=== PATIENT | female | born 1930 | race Caucasian/White ===

== ENCOUNTER 2017-02-14 14:35 | Inpatient (IN) | payer OTHER ==
[~2017-02-14] VITALS: Ht 177.8 cm; Wt 63.8 kg
[~2017-02-14 14:35] MED LIST: AMLO10TA2 PO; APIX5TAB PO; ASCO500T2 PO; CETI10TA22 PO; CIPR250T30 PO; DOCU-109 PO; Diltiazem Hcl PO; FERR325T72 PO; FLEC50TA PO; FLECAINIDE 50 MG; HYDR-2762 PO; LEVO250T25 PO; Lisinopril PO; METO25TA2 PO; METO25TA4 PO; Metoprolol Tartrate PO; ZINC220C5 PO
--- NOTE | 2017-02-14 15:12 | PHYS DOC ---
Past Medical History Past Medical History: A-Fib, GERD, Hypertension, Other Additional Past Medical Histor: seasonal allergies Past Surgical History: Appendectomy, Hysterectomy Alcohol Use: None Drug Use: None Adult General Chief Complaint Chief Complaint: MECHANICAL FALL HPI HPI Patient is a 86 year old female who presents with of ER with dizziness. The middle night she tried to go to the restroom and when she got up she got very lightheaded and dizzy and went to the floor. Her life alert when off and her daughters came over and got her back and up into her bed and she did not want to go to the hospital. She's been complaining ever since the incident which happened approximately 12 hours ago that she's been lightheaded whenever she sits up or tries to stand up. She states she's noticed in her heart beating faster than normal. She states she is on flecainide she takes it twice a day and took it this morning. She does get weaned off of metoprolol by Dr. Galan because her heart rate usually is in the 60s and she is not taking a very often. She has a bruise the left side of her scalp but denies any headache , neck pain, abdominal pain, hip pain or shortness of breath. She states she feels very weak and dizzy when she tries to change positions. She denies any vertigo, or chest pain. Review of Systems Review of Systems Constitutional: Denies fever or chills [] Eyes: Denies change in visual acuity, redness, or eye pain [] HENT: Denies nasal congestion or sore throat [] Respiratory: Denies cough or shortness of breath [] Cardiovascular: No additional information not addressed in HPI [] GI: Denies abdominal pain, nausea, vomiting, bloody stools or diarrhea [] : Denies dysuria or hematuria [] Musculoskeletal: Denies back pain or joint pain [] Integument: Denies rash or skin lesions [] Neurologic: Denies headache, focal weakness or sensory changes [] Endocrine: Denies polyuria or polydipsia [] Current Medications Current Medications Current Medications Medications (Trade) Dose Ordered Sig/Alley Start Time Stop Time Status Last Admin Dose Admin Diltiazem HCl (Cardizem) 10 mg 1X ONCE 02/14/17 15:30 02/14/17 15:32 DC 02/14/17 16:20 10 MG Diltiazem HCl 125 mg/Dextrose 125 ml @ 10 mls/hr 1X ONCE 02/14/17 15:30 02/15/17 03:59 02/14/17 16:20 10 MLS/HR Allergies Allergies Allergies Coded Allergies Type Severity Reaction Last Updated Verified Penicillins Allergy Intermediate RASH/SWELLING 08/08/15 Yes zolpidem Allergy Intermediate 11/04/15 No Physical Exam Physical Exam Constitutional: Well developed, well nourished, no acute distress, non-toxic appearance. [] HENT: Normocephalic, bilateral external ears normal, oropharynx moist, no oral exudates, nose normal. [] Eyes: PERRLA, EOMI, conjunctiva normal, no discharge. [] Neck: Normal range of motion, no tenderness, supple, no stridor. [] Cardiovascular:Heart rate tachycardiac with irregular rhythm Lungs & Thorax: Bilateral breath sounds clear to auscultation [] Abdomen: Bowel sounds normal, soft, no tenderness, no masses, no pulsatile masses. [] Skin: Warm, dry, no erythema, no rash. [] Back: No tenderness, no CVA tenderness. [] Extremities: No tenderness, no cyanosis, no clubbing, ROM intact, no edema. [] Neurologic: Alert and oriented X 3, normal motor function, normal sensory function, no focal deficits noted. 2 x 4 cm skin tear of the left proximal humerus, ecchymosis 3 x 3 cm over the left parietal scalp without any obvious deformities Psychologic: Affect normal, judgement normal, mood normal. [] Current Patient Data Vital Signs Vital Signs Date Time Temp Pulse Resp B/P (MAP) Pulse Ox O2 Delivery O2 Flow Rate FiO2 02/14/17 16:30 94 96 02/14/17 16:20 115/80 02/14/17 14:50 97.7 22 Room Air 97.7 Lab Values Laboratory Tests Test 02/14/17 16:25 White Blood Count 16.0 x10^3/uL (4.0-11.0) H Red Blood Count 5.66 x10^6/uL (3.50-5.40) H Hemoglobin 15.4 g/dL (12.0-15.5) Hematocrit 46.3 % (36.0-47.0) Mean Corpuscular Volume 82 fL (79-100) Mean Corpuscular Hemoglobin 27 pg (25-35) Mean Corpuscular Hemoglobin Concent 33 g/dL (31-37) Red Cell Distribution Width 17.2 % (11.5-14.5) H Platelet Count 301 x10^3/uL (140-400) Neutrophils (%) (Auto) 78 % (31-73) H Lymphocytes (%) (Auto) 12 % (24-48) L Monocytes (%) (Auto) 10 % (0-9) H Eosinophils (%) (Auto) 0 % (0-3) Basophils (%) (Auto) 0 % (0-3) Neutrophils # (Auto) 12.4 x10^3uL (1.8-7.7) H Lymphocytes # (Auto) 1.9 x10^3/uL (1.0-4.8) Monocytes # (Auto) 1.6 x10^3/uL (0.0-1.1) H Eosinophils # (Auto) 0.0 x10^3/uL (0.0-0.7) Basophils # (Auto) 0.1 x10^3/uL (0.0-0.2) Prothrombin Time 13.5 SEC (11.7-14.0) Prothrombin Time INR 1.1 (0.8-1.1) Urine Collection Type U cath Urine Color Yellow Urine Clarity Cloudy Urine pH 7.5 Urine Specific [place] 1.015 Urine Protein Negative mg/dL (NEG-TRACE) Urine Glucose (UA) Negative mg/dL (NEG) Urine Ketones (Stick) Negative mg/dL (NEG) Urine Blood Small (NEG) Urine Nitrite Negative (NEG) Urine Bilirubin Negative (NEG) Urine Urobilinogen Dipstick 0.2 mg/dL (0.2 mg/dL) Urine Leukocyte Esterase Large (NEG) Urine RBC Occ /HPF (0-2) Urine WBC >40 /HPF (0-4) Urine Bacteria Many /HPF (0-FEW) Laboratory Tests 02/14/17 16:25 EKG EKG [] Radiology/Procedures Radiology/Procedures [facility] [address] [place], [place] [id number] IMAGING REPORT Signed PATIENT: DIGNA STARR ACCOUNT: [id number] : 1930 LOCATION: ER AGE: 86 SEX: F EXAM STATUS: PRE ER ORD. PHYSICIAN: LEO EASON MD REASON: afib with rvr, dizziness PROCEDURE: PORTABLE CHEST 1V PORTABLE CHEST 1V Clinical Indication: afib with rvr, dizziness Comparison: Chest radiograph dated 08/06/2015 Findings: Low lung volume. No focal consolidation. Unchanged interstitial opacities. Stable pulmonary vasculature. No pleural effusion or pneumothorax. Stable cardiomegaly. Stable atherosclerotic and tortuous thoracic aorta. No acute osseous abnormality. IMPRESSION: 1. No focal consolidation. 2. Stable cardiomegaly. DICTATED and SIGNED BY: MIGUELINA DEUTSCH MD DATE: 02/14/17 1473 CC: LEO EASON MD; UNKNOWN PCP NAME ~ [facility] [address] [place] [address] IMAGING REPORT Signed PATIENT: DIGNA STARR ACCOUNT: [id number] : 1930 LOCATION: ER AGE: 86 SEX: F EXAM STATUS: PRE ER ORD. PHYSICIAN: LEO EASON MD REASON: fall with chi PROCEDURE: CT HEAD AND CERVICAL SPINE WO CTA head and neck Indication: Fall Technique: CT head and neck without IV contrast with multiplanar reformats. Comparison: Previous study from 08/06/2015 Findings: CT head: No pathologic extra-axial or intra-axial fluid collection. Mild to moderate diffuse brain atrophy with ex vacuo dilation of the ventricles. Confluent periventricular and deep white matter low-attenuation of the white matter noted. No acute intracranial bleed. No calvarial fractures. Mild mucoperiosteal thickening of the ethmoid air cells. The mastoid cells are clear. Bilateral cavernous carotid artery calcifications. Impression: 1. No acute intracranial process on this noncontrast CT. 2. Mild to moderate diffuse brain atrophy. 3. White matter changes secondary to sequelae of chronic medical vascular small vessel disease. CT neck: Cervical spine is in normal anatomic alignment. No compression deformities. Facet joints are in normal anatomic alignment. Predental interval is preserved with arthritic changes. There is intervertebral disc space narrowing noted at multiple levels with small anterior osteophytes suggesting degenerative disc disease. Severe right C2-C3 facet arthropathy. No acute fractures. Stable scarring and emphysematous changes seen in the lung apices, right more than left. Prevertebral soft tissues within normal limits. Impression: 1. No acute fractures of the cervical spine or malalignment. 2. Multilevel degenerative disc disease and facet arthropathy of the cervical spine. PQRS Compliance Statement: One or more of the following individualized dose reduction techniques were utilized for this examination: 1. Automated exposure control 2. Adjustment of the mA and/or kV according to patient size 3. Use of iterative reconstruction technique DICTATED and SIGNED BY: MINE FRANCO DO DATE: 02/14/17 5466 CC: LEO EASON MD; UNKNOWN PCP NAME ~ Impressions: A. fib with RVR Closed head injury Left arm skin tear UTI Hypertension Course & Med Decision Making Course & Med Decision Making Pertinent Labs and Imaging studies reviewed. (See chart for details) CT head and neck do not show an acute amount. Patient was started on diltiazem 10 mg bolus and then a drip help control her heart rate. Initial heart rate was 118-125 and now it's in the high 90s. She does have a UTI on labs and was offered Rocephin but she states she has allergy to penicillin she does not want to try Rocephin. I switched to order to oral Cipro. I placed cardiology consultation. Patient is in stable condition at this time being transferred to CVC under the hospitalist care. Critical care time 45 minutes of critical care time was used on this patient excluding procedures. Dragon Disclaimer Dragon Disclaimer This electronic medical record was generated, in whole or in part, using a voice recognition dictation system. Departure Departure Impression: Primary Impression: Atrial fibrillation with RVR Disposition: ADMITTED INPATIENT Admitting Physician: Other Condition: STABLE Referrals: UNKNOWN PCP NAME (PCP) LEO EASON MD Feb 14, 2017 15:12
[2017-02-14] MEDS ORDERED: dilTIAZem IV PUSH 25 MG/5 ML VIAL IVP ONE (15:30)
--- NOTE | 2017-02-14 15:52 | RAD ---
PORTABLE CHEST 1V Clinical Indication: afib with rvr, dizziness Comparison: Chest radiograph dated 08/06/2015 Findings: Low lung volume. No focal consolidation. Unchanged interstitial opacities. Stable pulmonary vasculature. No pleural effusion or pneumothorax. Stable cardiomegaly. Stable atherosclerotic and tortuous thoracic aorta. No acute osseous abnormality. IMPRESSION: 1. No focal consolidation. 2. Stable cardiomegaly.
--- NOTE | 2017-02-14 16:13 | RAD ---
CTA head and neck Indication: Fall Technique: CT head and neck without IV contrast with multiplanar reformats. Comparison: Previous study from 08/06/2015 Findings: CT head: No pathologic extra-axial or intra-axial fluid collection. Mild to moderate diffuse brain atrophy with ex vacuo dilation of the ventricles. Confluent periventricular and deep white matter low-attenuation of the white matter noted. No acute intracranial bleed. No calvarial fractures. Mild mucoperiosteal thickening of the ethmoid air cells. The mastoid cells are clear. Bilateral cavernous carotid artery calcifications. Impression: 1. No acute intracranial process on this noncontrast CT. 2. Mild to moderate diffuse brain atrophy. 3. White matter changes secondary to sequelae of chronic medical vascular small vessel disease. CT neck: Cervical spine is in normal anatomic alignment. No compression deformities. Facet joints are in normal anatomic alignment. Predental interval is preserved with arthritic changes. There is intervertebral disc space narrowing noted at multiple levels with small anterior osteophytes suggesting degenerative disc disease. Severe right C2-C3 facet arthropathy. No acute fractures. Stable scarring and emphysematous changes seen in the lung apices, right more than left. Prevertebral soft tissues within normal limits. Impression: 1. No acute fractures of the cervical spine or malalignment. 2. Multilevel degenerative disc disease and facet arthropathy of the cervical spine. PQRS Compliance Statement: One or more of the following individualized dose reduction techniques were utilized for this examination: 1. Automated exposure control 2. Adjustment of the mA and/or kV according to patient size 3. Use of iterative reconstruction technique
[2017-02-14 16:34] LABS: BASO # 0.1 x10^3/uL (0.0-0.2); BASO % 0 % (0-3); BILIRUBIN,URINE NEGATIVE (NEG); EOS % 0 % (0-3); GLUCOSE,URINE NEGATIVE (NEG); HEMATOCRIT 46.3 % (36.0-47.0); HEMOGLOBIN 15.4 g/dL (12.0-15.5); LYMPH # 1.9 x10^3/uL (1.0-4.8); LYMPH % 12 % (24-48); MEAN CORPUSCULAR HEMOGLOBIN 27 pg (25-35); MEAN CORPUSCULAR HGB CONC 33 g/dL (31-37); MEAN CORPUSCULAR VOLUME 82 fL (79-100); MONO % 10 % (0-9); NEUT % 78 % (31-73); NITRITE,URINE NEGATIVE (NEG); PH,URINE 7.5; PLATELET COUNT 301 x10^3/uL (140-400); PROTEIN,URINE NEGATIVE (NEG-TRACE); RED BLOOD COUNT 5.66 x10^6/uL (3.50-5.40); RED CELL DISTRIBUTION WIDTH 17.2 % (11.5-14.5); UROBILINOGEN,URINE 0.2 mg/dL (0.2 mg/dL)
[2017-02-14 16:40] LABS: BACTERIA,URINE MANY /HPF (0-FEW); RBC,URINE OCC /HPF (0-2); WBC,URINE >40 /HPF (0-4)
[2017-02-14 16:41] LABS: INR 1.1 (0.8-1.1); PROTHROMBIN TIME PATIENT 13.5 SEC (11.7-14.0)
[2017-02-14 17:26] LABS: CALCIUM 9.4 mg/dL (8.5-10.1); CREATININE 0.8 mg/dL (0.6-1.0); GFR 67.8; POTASSIUM 3.7 mmol/L (3.5-5.1)
[2017-02-14] MEDS ORDERED: CIPROFLOXACIN HCL 250 MG TABLET. PO ONE (17:30)
[2017-02-14 17:32] LABS: ALBUMIN 3.2 g/dL (3.4-5.0); DIRECT BILIRUBIN 0.3 mg/dL (0.0-0.2); TOTAL PROTEIN 7.3 g/dL (6.4-8.2)
[2017-02-14 17:41] LABS: CKMB MASS 0.9 ng/mL (0.0-3.6)
[2017-02-14 20:00] VITALS: BP 107/63
[2017-02-14] MEDS ORDERED: ASPI-630 PO (20:23)
[2017-02-14 21:00] VITALS: BP 126/55
[2017-02-14] MEDS ORDERED: FLU VACC QS2017-18 (36MOS+)/PF 0.5 ML SYRINGE. VAX IM ONE (21:00)
[2017-02-14 22:00] VITALS: BP 150/78
[2017-02-14 23:30] VITALS: BP 137/76
[2017-02-14 23:31] VITALS: BP 139/77
[2017-02-14 23:59] VITALS: BP 129/70
[2017-02-15] VITALS (11 sets, daily range): BP systolic 114–152; BP diastolic 52–83
[2017-02-15] MEDS ORDERED: ACETAMINOPHEN 325 MG TABLET. PO PRN ×2 (00:45→10:00)
--- NOTE | 2017-02-15 01:27 | HP ---
ADMIT DATE: 02/14/2017 CHIEF COMPLAINT: Dizziness. HISTORY OF PRESENT ILLNESS: The patient is an 86-year-old woman with history of AFib as well as distant history of vertigo, who presented to the Emergency Room with dizziness. She relates that this actually had been going on for several days. Last night; however, she tried to get up to go to the restroom, barely made it because of dizziness, but was unable to make it back and apparently collapsed over her walker. Life alert went off and daughters were immediately on the scene and put her back to bed. However, the patient declined to be taken to the hospital. With ongoing dizziness; however, daughters prevailed and brought her in. She relates that her dizziness is not vertigo with room spinning, but rather lightheaded and nauseous. This is worse when she is upright as compared to lying down. She also has noticed that her heart rate was much faster than usual. In the Emergency Room, she was found with AFib in RVR, therefore, started on IV Cardizem. Currently, she is stable in what appears to be normal sinus rhythm. PAST MEDICAL HISTORY: AFib, hypertension, GERD. PAST SURGICAL HISTORY: She is status post appendectomy and hysterectomy. FAMILY HISTORY: No cardiac issues known. SOCIAL HISTORY: Lives by herself. Family is very close by. No toxic habits. ALLERGIES: PENICILLINS AND ZOLPIDEM. MEDICATIONS: MAR reconciled with home medications. REVIEW OF SYSTEMS: Positive as per HPI. Currently, while recumbent in bed, she denies any dizziness, chest pain, shortness of breath, palpitations or any other symptoms in rest of organ system review. PHYSICAL EXAMINATION: VITAL SIGNS: Currently show blood pressure of 139/77, heart rate at 75, respiratory rate at 20. She is afebrile. GENERAL: This is a malnourished 86-year-old woman, alert and oriented, in no acute distress. HEENT: Shows no scleral icterus. NECK: Supple, without any lymphadenopathy. LUNGS: Fairly clear. HEART: Has regular rate and rhythm without any murmurs. ABDOMEN: Has positive bowel sounds, soft, nontender. EXTREMITIES: Show no edema. LABORATORY DATA: CBC with a WBC of 16.0, hemoglobin 15.6, platelets of 301. Differential with a neutrophilia of 78%. Chemistries with a BUN and creatinine of 13 and 0.8. Normal electrolytes. LFTs within normal. ProBNP at 3651. Initial troponin is negative. Urine shows greater than 40 WBC and many bacteria. IMAGING: Chest x-ray shows no focal consolidation, stable cardiomegaly. CT of the head and spine shows no acute fractures of the cervical spine or malalignment. She does have multiple level degenerative disk disease and facet arthropathy. CT head does not show any intracranial process. ASSESSMENT AND PLAN: The patient is an 86-year-old woman with history of AFib, off any anticoagulants secondary to risk of her falls, who now presents with lightheadedness, dizziness and increased heart rate. Unfortunately, EKG from the Emergency Room is currently not available. Unclear if this was sinus versus AFib. Currently; however, she is in normal sinus rhythm on minimal dose of Cardizem. We will wean this off and switch to p.o. medications in a.m. Cardiology consult will be obtained. The patient clearly has a UTI, which may be responsible for her dizziness rather than heart rate. She has been started on empiric antibiotics with ciprofloxacin due to allergies to penicillins. We will await urine culture. Continue Cipro b.i.d. for the time being. We will continue all her other home medications, which are actually quite limited. LINDA ISM MD DR: UR/nts JOB#: [id number] / [id number] SLICK Aragon MD MTDD
[2017-02-15] MEDS: CIPROFLOXACIN HCL 250 MG TABLET. PO SCH ×2 (06:15→18:00)
[2017-02-15 06:32] LABS: BASO % 0 % (0-3); EOS % 1 % (0-3); HEMATOCRIT 39.8 % (36.0-47.0); HEMOGLOBIN 13.5 g/dL (12.0-15.5); LYMPH # 2.2 x10^3/uL (1.0-4.8); LYMPH % 21 % (24-48); MEAN CORPUSCULAR HEMOGLOBIN 27 pg (25-35); MEAN CORPUSCULAR HGB CONC 34 g/dL (31-37); MEAN CORPUSCULAR VOLUME 81 fL (79-100); MONO % 13 % (0-9); NEUT % 65 % (31-73); PLATELET COUNT 327 x10^3/uL (140-400); RED BLOOD COUNT 4.91 x10^6/uL (3.50-5.40); WHITE BLOOD COUNT 10.6 x10^3/uL (4.0-11.0)
[2017-02-15 07:24] LABS: CALCIUM 9.2 mg/dL (8.5-10.1); CREATININE 0.6 mg/dL (0.6-1.0); GFR 94.6; POTASSIUM 3.5 mmol/L (3.5-5.1)
[2017-02-15] MEDS: DOCUSATE SODIUM 100 MG CAPSULE. PO SCH ×2 (08:10→21:08)
[2017-02-15] MEDS: CETIRIZINE HCL 10 MG TABLET. PO SCH (08:10)
[2017-02-15] MEDS: ASPIRIN CHEWABLE 81 MG TABLET. PO SCH (08:11)
--- NOTE | 2017-02-15 08:44 | PDOC2 ---
CARDIOLOGY CONSULT NOTE CHEIF COMPLAINT: Fast heart rate and chest pain Problems: HPI: Pleasant 86-year-old woman who has a past medical history of paroxysmal atrial fibrillation and who recently had her metoprolol discontinued due to bradycardia presents with atrial for ablation with a rapid ventricular response. She felt some lightheadedness and dizziness. In addition to this she was also diagnosed with UTI in the emergency department. Previously the patient has not been on an to regulation due to a high fall risk. Otherwise patient denies any chest pain, orthopnea, PND or lower extremity edema. She's able to do minimal work around the house. She lives by her salt. PMHX: As noted above SOCHX: Lives by herself. Denies any alcohol, tobacco or illicit drug use. FAMHX: Noncontributory CURRENT MEDS: Current Medications Medications (Trade) Dose Ordered Sig/Alley Start Time Stop Time Status Last Admin Dose Admin Acetaminophen (Tylenol) 650 mg PRN Q6HRS PRN 02/15/17 00:45 Aspirin (Children'S Aspirin) 81 mg DAILY 02/15/17 09:00 02/15/17 08:11 81 MG Ceftriaxone Sodium 50 ml @ 100 mls/hr 1X ONCE 02/14/17 17:00 02/14/17 17:07 DC Cetirizine HCl (ZyrTEC) 10 mg DAILY 02/15/17 09:00 02/15/17 08:10 10 MG Ciprofloxacin (Cipro) 500 mg [id number] 02/15/17 06:00 02/15/17 06:15 500 MG Diltiazem HCl (Cardizem) 10 mg 1X ONCE 02/14/17 15:30 02/14/17 15:32 DC 02/14/17 16:20 10 MG Diltiazem HCl 125 mg/Dextrose 125 ml @ 0 mls/hr CONT PRN 02/15/17 08:00 Docusate Sodium (Colace) 100 mg BID 02/15/17 09:00 02/15/17 08:10 100 MG Influenza Virus Vaccine Quadrival (Fluarix Quad [id number] Syringe) 0.5 ml ONCE ONCE 02/14/17 21:00 02/14/17 21:01 DC 02/15/17 08:10 0.5 ML Info (Do NOT chart on this placeholder) 1 each 1X ONCE 02/15/17 09:00 02/15/17 09:01 UNV ALLERGIES: Allergies Coded Allergies Type Severity Reaction Last Updated Verified Penicillins Allergy Intermediate RASH/SWELLING 08/08/15 Yes zolpidem Allergy Intermediate 11/04/15 No ROS: Negative for 10 out of 14 systems reviewed also otherwise mentioned above in history of present illness PHYSICAL EXAM: Vital Signs: Vital Signs Date Time Temp Pulse Resp B/P (MAP) Pulse Ox O2 Delivery O2 Flow Rate FiO2 02/15/17 08:18 Room Air 02/15/17 07:00 98.2 72 20 128/79 (95) 98 98.2 Physical Exam: GEN.: No apparent distress. Alert and oriented. Frail elderly woman HEENT: Head is normocephalic, atraumatic NECK: Supple. LUNGS: Clear to auscultation. HEART: RRR, S1, S2 present. Peripheral pulses intact ABDOMEN: Soft, nontender. Positive bowel sounds. EXTREMITIES: Without any cyanosis. NEUROLOGIC: Normal speech, normal tone PSYCHIATRIC: Normal affect, normal mood. SKIN: No ulcerations DIAGNOSTIC TESTING: Telemetry with sinus rhythm and frequent paroxysmal atrial tachycardia Lab Laboratory Tests Test 02/14/17 16:25 02/14/17 17:00 02/15/17 04:30 White Blood Count 16.0 x10^3/uL (4.0-11.0) H 10.6 x10^3/uL (4.0-11.0) Red Blood Count 5.66 x10^6/uL (3.50-5.40) H 4.91 x10^6/uL (3.50-5.40) Hemoglobin 15.4 g/dL (12.0-15.5) 13.5 g/dL (12.0-15.5) Hematocrit 46.3 % (36.0-47.0) 39.8 % (36.0-47.0) Mean Corpuscular Volume 82 fL (79-100) 81 fL (79-100) Mean Corpuscular Hemoglobin 27 pg (25-35) 27 pg (25-35) Mean Corpuscular Hemoglobin Concent 33 g/dL (31-37) 34 g/dL (31-37) Red Cell Distribution Width 17.2 % (11.5-14.5) H 17.0 % (11.5-14.5) H Platelet Count 301 x10^3/uL (140-400) 327 x10^3/uL (140-400) Neutrophils (%) (Auto) 78 % (31-73) H 65 % (31-73) Lymphocytes (%) (Auto) 12 % (24-48) L 21 % (24-48) L Monocytes (%) (Auto) 10 % (0-9) H 13 % (0-9) H Eosinophils (%) (Auto) 0 % (0-3) 1 % (0-3) Basophils (%) (Auto) 0 % (0-3) 0 % (0-3) Neutrophils # (Auto) 12.4 x10^3uL (1.8-7.7) H 6.9 x10^3uL (1.8-7.7) Lymphocytes # (Auto) 1.9 x10^3/uL (1.0-4.8) 2.2 x10^3/uL (1.0-4.8) Monocytes # (Auto) 1.6 x10^3/uL (0.0-1.1) H 1.4 x10^3/uL (0.0-1.1) H Eosinophils # (Auto) 0.0 x10^3/uL (0.0-0.7) 0.1 x10^3/uL (0.0-0.7) Basophils # (Auto) 0.1 x10^3/uL (0.0-0.2) 0.0 x10^3/uL (0.0-0.2) Prothrombin Time 13.5 SEC (11.7-14.0) Prothromb Time International Ratio 1.1 (0.8-1.1) Urine Collection Type U cath Urine Color Yellow Urine Clarity Cloudy Urine pH 7.5 Urine Specific [place] 1.015 Urine Protein Negative mg/dL (NEG-TRACE) Urine Glucose (UA) Negative mg/dL (NEG) Urine Ketones (Stick) Negative mg/dL (NEG) Urine Blood Small (NEG) Urine Nitrite Negative (NEG) Urine Bilirubin Negative (NEG) Urine Urobilinogen Dipstick 0.2 mg/dL (0.2 mg/dL) Urine Leukocyte Esterase Large (NEG) Urine RBC Occ /HPF (0-2) Urine WBC >40 /HPF (0-4) Urine Bacteria Many /HPF (0-FEW) Sodium Level 136 mmol/L (136-145) 137 mmol/L (136-145) Potassium Level 3.7 mmol/L (3.5-5.1) 3.5 mmol/L (3.5-5.1) Chloride Level 99 mmol/L (98-107) 99 mmol/L (98-107) Carbon Dioxide Level 27 mmol/L (21-32) 24 mmol/L (21-32) Anion Gap 10 (6-14) 14 (6-14) Blood Urea Nitrogen 13 mg/dL (7-20) 15 mg/dL (7-20) Creatinine 0.8 mg/dL (0.6-1.0) 0.6 mg/dL (0.6-1.0) Estimated GFR (Cockcroft-Gault) 67.8 94.6 Glucose Level 128 mg/dL (70-99) H 80 mg/dL (70-99) Calcium Level 9.4 mg/dL (8.5-10.1) 9.2 mg/dL (8.5-10.1) Total Bilirubin 1.0 mg/dL (0.2-1.0) Direct Bilirubin 0.3 mg/dL (0.0-0.2) H Aspartate Amino Transf (AST/SGOT) 28 U/L (15-37) Alkaline Phosphatase 85 U/L (46-116) Creatine Kinase 62 U/L (26-192) Creatine Kinase MB (Mass) 0.9 ng/mL (0.0-3.6) Creatine Kinase MB Relative Index 1.5 % (0-4) Total Protein 7.3 g/dL (6.4-8.2) Albumin 3.2 g/dL (3.4-5.0) L Lipase 93 U/L (73-393) ASSESSMENT: 1. Paroxysmal atrial fibrillation/tachycardia 2. High fall risk 3. Tachybradycardia syndrome PLAN: 1. We will initiate the patient on low-dose Cardizem therapy with 120 mg XL daily dose. This may ultimately relieved to bradycardia and we will discuss with the patient's family about her tachybradycardia syndrome and likely need for pacemaker in the future. Continue home flecainide therapy. 2. Poor candidate for anticoagulation. Spent 15 min discussing with family. Continue supportive care. We will follow along closely. Thank you for this consultation. CLAU ESCOBAR MD Feb 15, 2017 08:44
[2017-02-15] MEDS ORDERED: INFLUENZA VAX SCREEN BY RX. MC ONE (09:00)
[2017-02-15] MEDS ORDERED: DOCUSATE SODIUM 100 MG CAPSULE. PO PRN (10:00)
[2017-02-15] MEDS ORDERED: hydrALAZINE 20 MG/ML VIAL. IVP PRN (10:00)
[2017-02-15] MEDS ORDERED: traMADol 50 MG TABLET PO PRN (10:00)
[2017-02-15] MEDS ORDERED: MORPHINE SULFATE 2 MG/ML DISP.SYRIN. IV PRN (10:00)
[2017-02-15] MEDS ORDERED: ONDANSETRON PF 4 MG/2 ML VIAL. IV PRN (10:00)
--- NOTE | 2017-02-15 12:10 | EKG ---
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 ABNORMAL LEFT AXIS DEVIATION R-S TRANSITION ZONE IN V LEADS DISPLACED TO THE RIGHT LEFT ANTERIOR FASCICULAR BLOCK LEFT VENTRICULAR HYPERTROPHY QRS(T) CONTOUR ABNORMALITY CONSIDER ANTEROSEPTAL MYOCARDIAL DAMAGE T ABNORMALITY IN HIGH LATERAL LEADS ABNORMAL ECG RI6.01 Electronically Signed On 03-06-2017 16:59:10 CDT by Josue Dawson
--- NOTE | 2017-02-15 13:26 | PDOC ---
PROGRESS NOTES Chief Complaint Chief Complaint rapid afib htn gerd lightheaded UTI, recurrent leukocytosis, reactive constipation plan:fu with card add cardizem 120mg daily , taper drip on ASA, not on AC as per family requirement, but only on ASA 81, need to double check with card, may need higher dose cont cipro for now dvt ppx check orthostatic bp PTOT on stool softner History of Present Illness History of Present Illness ROS: no fever, chills, sob or chest pain sinus overnight, with cardizem drip 5 Vitals Vitals Vital Signs Date Time Temp Pulse Resp B/P (MAP) Pulse Ox O2 Delivery O2 Flow Rate FiO2 02/15/17 11:00 97.9 69 18 120/64 (82) 96 97.9 02/15/17 08:18 Room Air Physical Exam General: Alert, Oriented X3, Cooperative Heart: Regular rate, Normal S1, Normal S2 Lungs: Clear Abdomen: Normal bowel sounds, Soft Extremities: No clubbing, No cyanosis Skin: No rashes Labs LABS Laboratory Tests Test 02/14/17 16:25 02/14/17 17:00 02/15/17 00:05 02/15/17 04:30 White Blood Count 16.0 x10^3/uL (4.0-11.0) 10.6 x10^3/uL (4.0-11.0) Red Blood Count 5.66 x10^6/uL (3.50-5.40) 4.91 x10^6/uL (3.50-5.40) Hemoglobin 15.4 g/dL (12.0-15.5) 13.5 g/dL (12.0-15.5) Hematocrit 46.3 % (36.0-47.0) 39.8 % (36.0-47.0) Mean Corpuscular Volume 82 fL (79-100) 81 fL (79-100) Mean Corpuscular Hemoglobin 27 pg (25-35) 27 pg (25-35) Mean Corpuscular Hemoglobin Concent 33 g/dL (31-37) 34 g/dL (31-37) Red Cell Distribution Width 17.2 % (11.5-14.5) 17.0 % (11.5-14.5) Platelet Count 301 x10^3/uL (140-400) 327 x10^3/uL (140-400) Neutrophils (%) (Auto) 78 % (31-73) 65 % (31-73) Lymphocytes (%) (Auto) 12 % (24-48) 21 % (24-48) Monocytes (%) (Auto) 10 % (0-9) 13 % (0-9) Eosinophils (%) (Auto) 0 % (0-3) 1 % (0-3) Basophils (%) (Auto) 0 % (0-3) 0 % (0-3) Neutrophils # (Auto) 12.4 x10^3uL (1.8-7.7) 6.9 x10^3uL (1.8-7.7) Lymphocytes # (Auto) 1.9 x10^3/uL (1.0-4.8) 2.2 x10^3/uL (1.0-4.8) Monocytes # (Auto) 1.6 x10^3/uL (0.0-1.1) 1.4 x10^3/uL (0.0-1.1) Eosinophils # (Auto) 0.0 x10^3/uL (0.0-0.7) 0.1 x10^3/uL (0.0-0.7) Basophils # (Auto) 0.1 x10^3/uL (0.0-0.2) 0.0 x10^3/uL (0.0-0.2) Prothrombin Time 13.5 SEC (11.7-14.0) Prothromb Time International Ratio 1.1 (0.8-1.1) Urine Collection Type U cath Urine Color Yellow Urine Clarity Cloudy Urine pH 7.5 Urine Specific Hoffman 1.015 Urine Protein Negative mg/dL (NEG-TRACE) Urine Glucose (UA) Negative mg/dL (NEG) Urine Ketones (Stick) Negative mg/dL (NEG) Urine Blood Small (NEG) Urine Nitrite Negative (NEG) Urine Bilirubin Negative (NEG) Urine Urobilinogen Dipstick 0.2 mg/dL (0.2 mg/dL) Urine Leukocyte Esterase Large (NEG) Urine RBC Occ /HPF (0-2) Urine WBC >40 /HPF (0-4) Urine Bacteria Many /HPF (0-FEW) Sodium Level 136 mmol/L (136-145) 137 mmol/L (136-145) Potassium Level 3.7 mmol/L (3.5-5.1) 3.5 mmol/L (3.5-5.1) Chloride Level 99 mmol/L (98-107) 99 mmol/L (98-107) Carbon Dioxide Level 27 mmol/L (21-32) 24 mmol/L (21-32) Anion Gap 10 (6-14) 14 (6-14) Blood Urea Nitrogen 13 mg/dL (7-20) 15 mg/dL (7-20) Creatinine 0.8 mg/dL (0.6-1.0) 0.6 mg/dL (0.6-1.0) Estimated GFR (Cockcroft-Gault) 67.8 94.6 Glucose Level 128 mg/dL (70-99) 80 mg/dL (70-99) Calcium Level 9.4 mg/dL (8.5-10.1) 9.2 mg/dL (8.5-10.1) Magnesium Level 2.0 mg/dL (1.8-2.4) Total Bilirubin 1.0 mg/dL (0.2-1.0) Direct Bilirubin 0.3 mg/dL (0.0-0.2) Aspartate Amino Transf (AST/SGOT) 28 U/L (15-37) Alanine Aminotransferase (ALT/SGPT) 20 U/L (14-59) Alkaline Phosphatase 85 U/L (46-116) Creatine Kinase 62 U/L (26-192) Creatine Kinase MB (Mass) 0.9 ng/mL (0.0-3.6) Creatine Kinase MB Relative Index 1.5 % (0-4) Troponin I Quantitative < 0.017 ng/mL (0.000-0.055) < 0.017 ng/mL (0.000-0.055) < 0.017 ng/mL (0.000-0.055) JN-Kpk-F-Type Natriuretic Peptide 3651 pg/mL (0-449) Total Protein 7.3 g/dL (6.4-8.2) Albumin 3.2 g/dL (3.4-5.0) Lipase 93 U/L (73-393) Assessment and Plan Assessmemt and Plan Problems Medical Problems: (1) Atrial fibrillation with RVR Status: Acute Problems: Comment Review of Relevant I have reviewed the following items karlos (where applicable) has been applied. Labs Laboratory Tests Test 02/14/17 16:25 02/14/17 17:00 02/15/17 00:05 02/15/17 04:30 White Blood Count 16.0 x10^3/uL (4.0-11.0) 10.6 x10^3/uL (4.0-11.0) Red Blood Count 5.66 x10^6/uL (3.50-5.40) 4.91 x10^6/uL (3.50-5.40) Hemoglobin 15.4 g/dL (12.0-15.5) 13.5 g/dL (12.0-15.5) Hematocrit 46.3 % (36.0-47.0) 39.8 % (36.0-47.0) Mean Corpuscular Volume 82 fL (79-100) 81 fL (79-100) Mean Corpuscular Hemoglobin 27 pg (25-35) 27 pg (25-35) Mean Corpuscular Hemoglobin Concent 33 g/dL (31-37) 34 g/dL (31-37) Red Cell Distribution Width 17.2 % (11.5-14.5) 17.0 % (11.5-14.5) Platelet Count 301 x10^3/uL (140-400) 327 x10^3/uL (140-400) Neutrophils (%) (Auto) 78 % (31-73) 65 % (31-73) Lymphocytes (%) (Auto) 12 % (24-48) 21 % (24-48) Monocytes (%) (Auto) 10 % (0-9) 13 % (0-9) Eosinophils (%) (Auto) 0 % (0-3) 1 % (0-3) Basophils (%) (Auto) 0 % (0-3) 0 % (0-3) Neutrophils # (Auto) 12.4 x10^3uL (1.8-7.7) 6.9 x10^3uL (1.8-7.7) Lymphocytes # (Auto) 1.9 x10^3/uL (1.0-4.8) 2.2 x10^3/uL (1.0-4.8) Monocytes # (Auto) 1.6 x10^3/uL (0.0-1.1) 1.4 x10^3/uL (0.0-1.1) Eosinophils # (Auto) 0.0 x10^3/uL (0.0-0.7) 0.1 x10^3/uL (0.0-0.7) Basophils # (Auto) 0.1 x10^3/uL (0.0-0.2) 0.0 x10^3/uL (0.0-0.2) Prothrombin Time 13.5 SEC (11.7-14.0) Prothromb Time International Ratio 1.1 (0.8-1.1) Urine Collection Type U cath Urine Color Yellow Urine Clarity Cloudy Urine pH 7.5 Urine Specific Hoffman 1.015 Urine Protein Negative mg/dL (NEG-TRACE) Urine Glucose (UA) Negative mg/dL (NEG) Urine Ketones (Stick) Negative mg/dL (NEG) Urine Blood Small (NEG) Urine Nitrite Negative (NEG) Urine Bilirubin Negative (NEG) Urine Urobilinogen Dipstick 0.2 mg/dL (0.2 mg/dL) Urine Leukocyte Esterase Large (NEG) Urine RBC Occ /HPF (0-2) Urine WBC >40 /HPF (0-4) Urine Bacteria Many /HPF (0-FEW) Sodium Level 136 mmol/L (136-145) 137 mmol/L (136-145) Potassium Level 3.7 mmol/L (3.5-5.1) 3.5 mmol/L (3.5-5.1) Chloride Level 99 mmol/L (98-107) 99 mmol/L (98-107) Carbon Dioxide Level 27 mmol/L (21-32) 24 mmol/L (21-32) Anion Gap 10 (6-14) 14 (6-14) Blood Urea Nitrogen 13 mg/dL (7-20) 15 mg/dL (7-20) Creatinine 0.8 mg/dL (0.6-1.0) 0.6 mg/dL (0.6-1.0) Estimated GFR (Cockcroft-Gault) 67.8 94.6 Glucose Level 128 mg/dL (70-99) 80 mg/dL (70-99) Calcium Level 9.4 mg/dL (8.5-10.1) 9.2 mg/dL (8.5-10.1) Magnesium Level 2.0 mg/dL (1.8-2.4) Total Bilirubin 1.0 mg/dL (0.2-1.0) Direct Bilirubin 0.3 mg/dL (0.0-0.2) Aspartate Amino Transf (AST/SGOT) 28 U/L (15-37) Alanine Aminotransferase (ALT/SGPT) 20 U/L (14-59) Alkaline Phosphatase 85 U/L (46-116) Creatine Kinase 62 U/L (26-192) Creatine Kinase MB (Mass) 0.9 ng/mL (0.0-3.6) Creatine Kinase MB Relative Index 1.5 % (0-4) Troponin I Quantitative < 0.017 ng/mL (0.000-0.055) < 0.017 ng/mL (0.000-0.055) < 0.017 ng/mL (0.000-0.055) PZ-Uin-R-Type Natriuretic Peptide 3651 pg/mL (0-449) Total Protein 7.3 g/dL (6.4-8.2) Albumin 3.2 g/dL (3.4-5.0) Lipase 93 U/L (73-393) Laboratory Tests Test 02/14/17 16:25 02/14/17 17:00 02/15/17 00:05 02/15/17 04:30 White Blood Count 16.0 x10^3/uL (4.0-11.0) 10.6 x10^3/uL (4.0-11.0) Red Blood Count 5.66 x10^6/uL (3.50-5.40) 4.91 x10^6/uL (3.50-5.40) Hemoglobin 15.4 g/dL (12.0-15.5) 13.5 g/dL (12.0-15.5) Hematocrit 46.3 % (36.0-47.0) 39.8 % (36.0-47.0) Mean Corpuscular Volume 82 fL (79-100) 81 fL (79-100) Mean Corpuscular Hemoglobin 27 pg (25-35) 27 pg (25-35) Mean Corpuscular Hemoglobin Concent 33 g/dL (31-37) 34 g/dL (31-37) Red Cell Distribution Width 17.2 % (11.5-14.5) 17.0 % (11.5-14.5) Platelet Count 301 x10^3/uL (140-400) 327 x10^3/uL (140-400) Neutrophils (%) (Auto) 78 % (31-73) 65 % (31-73) Lymphocytes (%) (Auto) 12 % (24-48) 21 % (24-48) Monocytes (%) (Auto) 10 % (0-9) 13 % (0-9) Eosinophils (%) (Auto) 0 % (0-3) 1 % (0-3) Basophils (%) (Auto) 0 % (0-3) 0 % (0-3) Neutrophils # (Auto) 12.4 x10^3uL (1.8-7.7) 6.9 x10^3uL (1.8-7.7) Lymphocytes # (Auto) 1.9 x10^3/uL (1.0-4.8) 2.2 x10^3/uL (1.0-4.8) Monocytes # (Auto) 1.6 x10^3/uL (0.0-1.1) 1.4 x10^3/uL (0.0-1.1) Eosinophils # (Auto) 0.0 x10^3/uL (0.0-0.7) 0.1 x10^3/uL (0.0-0.7) Basophils # (Auto) 0.1 x10^3/uL (0.0-0.2) 0.0 x10^3/uL (0.0-0.2) Prothrombin Time 13.5 SEC (11.7-14.0) Prothromb Time International Ratio 1.1 (0.8-1.1) Urine Collection Type U cath Urine Color Yellow Urine Clarity Cloudy Urine pH 7.5 Urine Specific Hoffman 1.015 Urine Protein Negative mg/dL (NEG-TRACE) Urine Glucose (UA) Negative mg/dL (NEG) Urine Ketones (Stick) Negative mg/dL (NEG) Urine Blood Small (NEG) Urine Nitrite Negative (NEG) Urine Bilirubin Negative (NEG) Urine Urobilinogen Dipstick 0.2 mg/dL (0.2 mg/dL) Urine Leukocyte Esterase Large (NEG) Urine RBC Occ /HPF (0-2) Urine WBC >40 /HPF (0-4) Urine Bacteria Many /HPF (0-FEW) Sodium Level 136 mmol/L (136-145) 137 mmol/L (136-145) Potassium Level 3.7 mmol/L (3.5-5.1) 3.5 mmol/L (3.5-5.1) Chloride Level 99 mmol/L (98-107) 99 mmol/L (98-107) Carbon Dioxide Level 27 mmol/L (21-32) 24 mmol/L (21-32) Anion Gap 10 (6-14) 14 (6-14) Blood Urea Nitrogen 13 mg/dL (7-20) 15 mg/dL (7-20) Creatinine 0.8 mg/dL (0.6-1.0) 0.6 mg/dL (0.6-1.0) Estimated GFR (Cockcroft-Gault) 67.8 94.6 Glucose Level 128 mg/dL (70-99) 80 mg/dL (70-99) Calcium Level 9.4 mg/dL (8.5-10.1) 9.2 mg/dL (8.5-10.1) Magnesium Level 2.0 mg/dL (1.8-2.4) Total Bilirubin 1.0 mg/dL (0.2-1.0) Direct Bilirubin 0.3 mg/dL (0.0-0.2) Aspartate Amino Transf (AST/SGOT) 28 U/L (15-37) Alanine Aminotransferase (ALT/SGPT) 20 U/L (14-59) Alkaline Phosphatase 85 U/L (46-116) Creatine Kinase 62 U/L (26-192) Creatine Kinase MB (Mass) 0.9 ng/mL (0.0-3.6) Creatine Kinase MB Relative Index 1.5 % (0-4) Troponin I Quantitative < 0.017 ng/mL (0.000-0.055) < 0.017 ng/mL (0.000-0.055) < 0.017 ng/mL (0.000-0.055) JI-Rby-S-Type Natriuretic Peptide 3651 pg/mL (0-449) Total Protein 7.3 g/dL (6.4-8.2) Albumin 3.2 g/dL (3.4-5.0) Lipase 93 U/L (73-393) Medications Current Medications Diltiazem HCl (Cardizem) 10 mg 1X ONCE IVP Last administered on 02/14/17 16: 20; Start 02/14/17 at 15:30; Stop 02/14/17 at 15:32; Status DC Diltiazem HCl 125 mg/Dextrose 125 ml @ 10 mls/hr 1X ONCE IV Last administered on 02/14/17 16:20; Start 02/14/17 at 15:30; Stop 02/15/17 at 03:59 ; Status DC Ceftriaxone Sodium 50 ml @ 100 mls/hr 1X ONCE IV ; Start 02/14/17 at 17:00; Stop 02/14/17 at 17:07; Status DC Ciprofloxacin (Cipro) 500 mg 1X ONCE PO Last administered on 02/14/17 17:17; Start 02/14/17 at 17:30; Stop 02/14/17 at 17:31; Status DC Info (Do NOT chart on this placeholder) 1 each 1X ONCE MC ; Start 02/15/17 at 09:00; Stop 02/15/17 at 09:01; Status UNV Influenza Virus Vaccine Quadrival (Fluarix Quad [id number] Syringe) 0.5 ml ONCE ONCE VAX IM Last administered on 02/15/17 08:10; Start 02/14/17 at 21:00; Stop 02/14/17 at 21:01; Status DC Diltiazem HCl 125 mg/Dextrose 125 ml @ 0 mls/hr CONT PRN IV SEE I/O RECORD; Start 02/15/17 at 08:00 Acetaminophen (Tylenol) 650 mg PRN Q6HRS PRN PO fever pain; Start 02/15/17 at 00:45 Aspirin (Children'S Aspirin) 81 mg DAILY PO Last administered on 02/15/17 08: 11; Start 02/15/17 at 09:00 Cetirizine HCl (ZyrTEC) 10 mg DAILY PO Last administered on 02/15/17 08:10; Start 02/15/17 at 09:00 Docusate Sodium (Colace) 100 mg BID PO Last administered on 02/15/17 08:10; Start 02/15/17 at 09:00 Ciprofloxacin (Cipro) 500 mg [id number] PO Last administered on 02/15/17 06:15; Start 02/15/17 at 06:00 Acetaminophen (Tylenol) 650 mg PRN Q6HRS PRN PO FEVER; Start 02/15/17 at 10:00 Ondansetron HCl (Zofran) 4 mg PRN Q6HRS PRN IV NAUSEA/VOMITING; Start 02/15/17 at 10:00 Morphine Sulfate 2 mg PRN Q2HR PRN IV PAIN; Start 02/15/17 at 10:00 Tramadol HCl (Ultram) 50 mg PRN Q6HRS PRN PO PAIN; Start 02/15/17 at 10:00 Hydralazine HCl (Apresoline) 10 mg PRN Q4HRS PRN IVP ELEVATED BP, SEE COMMENTS ; Start 02/15/17 at 10:00 Docusate Sodium (Colace) 100 mg PRN DAILY PRN PO CONSTIPATION; Start 02/15/17 at 10:00 Diltiazem HCl (Cardizem 24hr Cd) 120 mg DAILY PO Last administered on t 10:56; Start 02/15/17 at 11:00 Active Scripts Active Colace (Docusate Sodium) 100 Mg Capsule 100 Mg PO BID Reported Aspirin 81 Mg Tab.chew 1 Tab PO DAILY Flecainide Acetate 50 Mg Tablet 50 Mg PO BID Zyrtec (Cetirizine Hcl) 10 Mg Tablet 1 Tab PO DAILY Vitals/I & O Vital Sign - Last 24 Hours 02/14/17 02/14/17 02/14/17 02/14/17 14:50 15:30 16:20 16:30 Temp 97.7 97.7 Pulse 114 108 122 94 Resp 22 B/P (MAP) 162/103 (122) 115/80 Pulse Ox 98 91 96 O2 Delivery Room Air 02/14/17 02/14/17 02/14/17 02/14/17 17:30 20:00 20:00 21:00 Pulse 98 76 82 B/P (MAP) 107/63 (78) 126/55 (78) Pulse Ox 98 O2 Delivery Room Air Room Air 02/14/17 02/14/17 02/14/17 02/14/17 22:00 23:30 23:31 23:59 Temp 97.8 97.5 97.8 97.5 Pulse 86 80 75 76 Resp 20 20 B/P (MAP) 150/78 (102) 137/76 (96) 139/77 (97) 129/70 (89) Pulse Ox 96 95 O2 Delivery Room Air Room Air 02/15/17 02/15/17 02/15/17 02/15/17 01:00 02:00 03:00 03:50 Temp 98.0 98.0 Pulse 76 74 72 69 Resp 20 B/P (MAP) 139/71 (93) 114/70 (85) 127/52 (77) 152/62 (92) Pulse Ox 96 O2 Delivery Room Air 02/15/17 02/15/17 02/15/17 02/15/17 05:00 05:58 07:00 08:18 Temp 98.2 98.2 Pulse 74 78 72 Resp 20 B/P (MAP) 136/68 (90) 150/83 (105) 128/79 (95) Pulse Ox 98 O2 Delivery Room Air Room Air 02/15/17 02/15/17 10:56 11:00 Temp 97.9 97.9 Pulse 72 69 Resp 18 B/P (MAP) 128/79 120/64 (82) Pulse Ox 96 HIRO BACA MD Feb 15, 2017 13:26
[2017-02-15] MEDS: ENOXAPARIN 40 MG/0.4 ML SYRINGE. SQ SCH (15:52)
[2017-02-16 03:50] VITALS: BP 151/89
[2017-02-16 05:17] LABS: BASO # 0.1 x10^3/uL (0.0-0.2); BASO % 1 % (0-3); EOS % 4 % (0-3); HEMATOCRIT 39.3 % (36.0-47.0); HEMOGLOBIN 13.3 g/dL (12.0-15.5); LYMPH # 2.3 x10^3/uL (1.0-4.8); LYMPH % 26 % (24-48); MEAN CORPUSCULAR HEMOGLOBIN 27 pg (25-35); MEAN CORPUSCULAR HGB CONC 34 g/dL (31-37); MEAN CORPUSCULAR VOLUME 81 fL (79-100); MONO % 12 % (0-9); NEUT % 57 % (31-73); PLATELET COUNT 275 x10^3/uL (140-400); RED BLOOD COUNT 4.84 x10^6/uL (3.50-5.40); RED CELL DISTRIBUTION WIDTH 16.8 % (11.5-14.5); WHITE BLOOD COUNT 8.8 x10^3/uL (4.0-11.0)
[2017-02-16 06:00] LABS: CALCIUM 8.5 mg/dL (8.5-10.1); CREATININE 0.7 mg/dL (0.6-1.0); GFR 79.2; POTASSIUM 3.7 mmol/L (3.5-5.1)
[2017-02-16] MEDS: CIPROFLOXACIN HCL 250 MG TABLET. PO SCH ×2 (06:31→17:11)
[2017-02-16 07:00] VITALS: BP 140/77
[2017-02-16] MEDS: DOCUSATE SODIUM 100 MG CAPSULE. PO SCH ×2 (08:18→20:55)
[2017-02-16] MEDS: ASPIRIN CHEWABLE 81 MG TABLET. PO SCH (08:18)
[2017-02-16] MEDS: CETIRIZINE HCL 10 MG TABLET. PO SCH (08:18)
--- NOTE | 2017-02-16 08:59 | PDOC ---
CARDIOLOGY PROGRESS NOTE SUBJECTIVE: No acute events overnight. No chest pain, dyspnea Feels weak. OBJECTIVE: Vital SIgns: Vital Signs Date Time Temp Pulse Resp B/P (MAP) Pulse Ox O2 Delivery O2 Flow Rate FiO2 02/16/17 08:18 69 140/77 02/16/17 03:50 97.7 18 96 Room Air 97.7 Objective: No new changes on exam. CURRENT MEDICATIONS: Current Medications Medications (Trade) Dose Ordered Sig/Alley Start Time Stop Time Status Last Admin Dose Admin Acetaminophen (Tylenol) 650 mg PRN Q6HRS PRN 02/15/17 10:00 02/15/17 13:24 DC Aspirin (Children'S Aspirin) 81 mg DAILY 02/15/17 09:00 02/16/17 08:18 81 MG Ceftriaxone Sodium 50 ml @ 100 mls/hr 1X ONCE 02/14/17 17:00 02/14/17 17:07 DC Cetirizine HCl (ZyrTEC) 10 mg DAILY 02/15/17 09:00 02/16/17 08:18 10 MG Ciprofloxacin (Cipro) 500 mg [id number] 02/15/17 06:00 02/16/17 06:31 500 MG Diltiazem HCl (Cardizem 24hr Cd) 120 mg DAILY 02/15/17 11:00 02/16/17 08:18 120 MG Diltiazem HCl (Cardizem) 10 mg 1X ONCE 02/14/17 15:30 02/14/17 15:32 DC 02/14/17 16:20 10 MG Diltiazem HCl 125 mg/Dextrose 125 ml @ 0 mls/hr CONT PRN 02/15/17 08:00 Docusate Sodium (Colace) 100 mg PRN DAILY PRN 02/15/17 10:00 Enoxaparin Sodium (Lovenox 40mg Syringe) 40 mg Q24H 02/15/17 14:00 02/15/17 15:52 40 MG Hydralazine HCl (Apresoline) 10 mg PRN Q4HRS PRN 02/15/17 10:00 Influenza Virus Vaccine Quadrival (Fluarix Quad [id number] Syringe) 0.5 ml ONCE ONCE 02/14/17 21:00 02/14/17 21:01 DC 02/15/17 08:10 0.5 ML Info (Do NOT chart on this placeholder) 1 each 1X ONCE 10/7/17 09:00 02/15/17 09:01 UNV Metoprolol Succinate (Toprol Xl) 25 mg DAILY 02/16/17 09:00 UNV Morphine Sulfate 2 mg PRN Q2HR PRN 02/15/17 10:00 Ondansetron HCl (Zofran) 4 mg PRN Q6HRS PRN 02/15/17 10:00 Tramadol HCl (Ultram) 50 mg PRN Q6HRS PRN 02/15/17 10:00 DIAGNOSTIC TESTING: Tele with SR with frequent PAC's ASSESSMENT: 1. Atrial arrhythmia Problems: PLAN: 1. Continue diltiazem, start Toprol XL 25mg daily Spoke extensively with family and patient about possibility of tachybrady and need for possible pacemaker They will fu with [facility] and determine final plans. Restart low dose toprol. Thanks Pls call with questions. ok to dc from CV perspective. thanks. CLAU ESCOBAR MD Feb 16, 2017 08:59
[2017-02-16] MEDS: METOPROLOL SUCC 24HR ER 25 MG TAB.ER.24H. PO SCH (10:22)
[2017-02-16 11:00] VITALS: BP 110/73
--- NOTE | 2017-02-16 13:22 | PDOC ---
PROGRESS NOTES Chief Complaint Chief Complaint rapid afib htn gerd lightheaded UTI, recurrent leukocytosis, reactive constipation plan:fu with card add cardizem 120mg daily ,cardizem drip stopped toprolol 25mg added since still tach at 90-120s on ASA, not on AC as per family requirement, but only on ASA 81, need to double check with card, may need higher dose cont cipro for now,.ucx + Citrobacter freundii dvt ppx check orthostatic bp PTOT recommend snf, will get sw on stool softner History of Present Illness History of Present Illness ROS: no fever, chills, sob or chest pain afib at 90-120s pt feels scared to go home today, lives alone + mild urination urgency had bradycardia history with metoprolol before Vitals Vitals Vital Signs Date Time Temp Pulse Resp B/P (MAP) Pulse Ox O2 Delivery O2 Flow Rate FiO2 02/16/17 11:00 97.8 81 19 110/73 (85) 95 Room Air 97.8 Physical Exam General: Alert, Oriented X3, Cooperative Heart: Regular rate, Normal S1, Normal S2 Lungs: Clear Abdomen: Normal bowel sounds, Soft Extremities: No clubbing, No cyanosis Skin: No rashes Labs LABS Laboratory Tests Test 02/16/17 04:00 White Blood Count 8.8 x10^3/uL (4.0-11.0) Red Blood Count 4.84 x10^6/uL (3.50-5.40) Hemoglobin 13.3 g/dL (12.0-15.5) Hematocrit 39.3 % (36.0-47.0) Mean Corpuscular Volume 81 fL (79-100) Mean Corpuscular Hemoglobin 27 pg (25-35) Mean Corpuscular Hemoglobin Concent 34 g/dL (31-37) Red Cell Distribution Width 16.8 % (11.5-14.5) Platelet Count 275 x10^3/uL (140-400) Neutrophils (%) (Auto) 57 % (31-73) Lymphocytes (%) (Auto) 26 % (24-48) Monocytes (%) (Auto) 12 % (0-9) Eosinophils (%) (Auto) 4 % (0-3) Basophils (%) (Auto) 1 % (0-3) Neutrophils # (Auto) 5.0 x10^3uL (1.8-7.7) Lymphocytes # (Auto) 2.3 x10^3/uL (1.0-4.8) Monocytes # (Auto) 1.1 x10^3/uL (0.0-1.1) Eosinophils # (Auto) 0.4 x10^3/uL (0.0-0.7) Basophils # (Auto) 0.1 x10^3/uL (0.0-0.2) Sodium Level 133 mmol/L (136-145) Potassium Level 3.7 mmol/L (3.5-5.1) Chloride Level 100 mmol/L (98-107) Carbon Dioxide Level 25 mmol/L (21-32) Anion Gap 8 (6-14) Blood Urea Nitrogen 15 mg/dL (7-20) Creatinine 0.7 mg/dL (0.6-1.0) Estimated GFR (Cockcroft-Gault) 79.2 Glucose Level 94 mg/dL (70-99) Calcium Level 8.5 mg/dL (8.5-10.1) Assessment and Plan Assessmemt and Plan Problems Medical Problems: (1) Atrial fibrillation with RVR Status: Acute Problems: Comment Review of Relevant I have reviewed the following items karlos (where applicable) has been applied. Labs Laboratory Tests Test 02/14/17 16:25 02/14/17 17:00 02/15/17 00:05 02/15/17 04:30 White Blood Count 16.0 x10^3/uL (4.0-11.0) 10.6 x10^3/uL (4.0-11.0) Red Blood Count 5.66 x10^6/uL (3.50-5.40) 4.91 x10^6/uL (3.50-5.40) Hemoglobin 15.4 g/dL (12.0-15.5) 13.5 g/dL (12.0-15.5) Hematocrit 46.3 % (36.0-47.0) 39.8 % (36.0-47.0) Mean Corpuscular Volume 82 fL (79-100) 81 fL (79-100) Mean Corpuscular Hemoglobin 27 pg (25-35) 27 pg (25-35) Mean Corpuscular Hemoglobin Concent 33 g/dL (31-37) 34 g/dL (31-37) Red Cell Distribution Width 17.2 % (11.5-14.5) 17.0 % (11.5-14.5) Platelet Count 301 x10^3/uL (140-400) 327 x10^3/uL (140-400) Neutrophils (%) (Auto) 78 % (31-73) 65 % (31-73) Lymphocytes (%) (Auto) 12 % (24-48) 21 % (24-48) Monocytes (%) (Auto) 10 % (0-9) 13 % (0-9) Eosinophils (%) (Auto) 0 % (0-3) 1 % (0-3) Basophils (%) (Auto) 0 % (0-3) 0 % (0-3) Neutrophils # (Auto) 12.4 x10^3uL (1.8-7.7) 6.9 x10^3uL (1.8-7.7) Lymphocytes # (Auto) 1.9 x10^3/uL (1.0-4.8) 2.2 x10^3/uL (1.0-4.8) Monocytes # (Auto) 1.6 x10^3/uL (0.0-1.1) 1.4 x10^3/uL (0.0-1.1) Eosinophils # (Auto) 0.0 x10^3/uL (0.0-0.7) 0.1 x10^3/uL (0.0-0.7) Basophils # (Auto) 0.1 x10^3/uL (0.0-0.2) 0.0 x10^3/uL (0.0-0.2) Prothrombin Time 13.5 SEC (11.7-14.0) Prothromb Time International Ratio 1.1 (0.8-1.1) Urine Collection Type U cath Urine Color Yellow Urine Clarity Cloudy Urine pH 7.5 Urine Specific Peterson 1.015 Urine Protein Negative mg/dL (NEG-TRACE) Urine Glucose (UA) Negative mg/dL (NEG) Urine Ketones (Stick) Negative mg/dL (NEG) Urine Blood Small (NEG) Urine Nitrite Negative (NEG) Urine Bilirubin Negative (NEG) Urine Urobilinogen Dipstick 0.2 mg/dL (0.2 mg/dL) Urine Leukocyte Esterase Large (NEG) Urine RBC Occ /HPF (0-2) Urine WBC >40 /HPF (0-4) Urine Bacteria Many /HPF (0-FEW) Sodium Level 136 mmol/L (136-145) 137 mmol/L (136-145) Potassium Level 3.7 mmol/L (3.5-5.1) 3.5 mmol/L (3.5-5.1) Chloride Level 99 mmol/L (98-107) 99 mmol/L (98-107) Carbon Dioxide Level 27 mmol/L (21-32) 24 mmol/L (21-32) Anion Gap 10 (6-14) 14 (6-14) Blood Urea Nitrogen 13 mg/dL (7-20) 15 mg/dL (7-20) Creatinine 0.8 mg/dL (0.6-1.0) 0.6 mg/dL (0.6-1.0) Estimated GFR (Cockcroft-Gault) 67.8 94.6 Glucose Level 128 mg/dL (70-99) 80 mg/dL (70-99) Calcium Level 9.4 mg/dL (8.5-10.1) 9.2 mg/dL (8.5-10.1) Magnesium Level 2.0 mg/dL (1.8-2.4) Total Bilirubin 1.0 mg/dL (0.2-1.0) Direct Bilirubin 0.3 mg/dL (0.0-0.2) Aspartate Amino Transf (AST/SGOT) 28 U/L (15-37) Alanine Aminotransferase (ALT/SGPT) 20 U/L (14-59) Alkaline Phosphatase 85 U/L (46-116) Creatine Kinase 62 U/L (26-192) Creatine Kinase MB (Mass) 0.9 ng/mL (0.0-3.6) Creatine Kinase MB Relative Index 1.5 % (0-4) Troponin I Quantitative < 0.017 ng/mL (0.000-0.055) < 0.017 ng/mL (0.000-0.055) < 0.017 ng/mL (0.000-0.055) KT-Uap-Z-Type Natriuretic Peptide 3651 pg/mL (0-449) Total Protein 7.3 g/dL (6.4-8.2) Albumin 3.2 g/dL (3.4-5.0) Lipase 93 U/L (73-393) Test 02/16/17 04:00 White Blood Count 8.8 x10^3/uL (4.0-11.0) Red Blood Count 4.84 x10^6/uL (3.50-5.40) Hemoglobin 13.3 g/dL (12.0-15.5) Hematocrit 39.3 % (36.0-47.0) Mean Corpuscular Volume 81 fL (79-100) Mean Corpuscular Hemoglobin 27 pg (25-35) Mean Corpuscular Hemoglobin Concent 34 g/dL (31-37) Red Cell Distribution Width 16.8 % (11.5-14.5) Platelet Count 275 x10^3/uL (140-400) Neutrophils (%) (Auto) 57 % (31-73) Lymphocytes (%) (Auto) 26 % (24-48) Monocytes (%) (Auto) 12 % (0-9) Eosinophils (%) (Auto) 4 % (0-3) Basophils (%) (Auto) 1 % (0-3) Neutrophils # (Auto) 5.0 x10^3uL (1.8-7.7) Lymphocytes # (Auto) 2.3 x10^3/uL (1.0-4.8) Monocytes # (Auto) 1.1 x10^3/uL (0.0-1.1) Eosinophils # (Auto) 0.4 x10^3/uL (0.0-0.7) Basophils # (Auto) 0.1 x10^3/uL (0.0-0.2) Sodium Level 133 mmol/L (136-145) Potassium Level 3.7 mmol/L (3.5-5.1) Chloride Level 100 mmol/L (98-107) Carbon Dioxide Level 25 mmol/L (21-32) Anion Gap 8 (6-14) Blood Urea Nitrogen 15 mg/dL (7-20) Creatinine 0.7 mg/dL (0.6-1.0) Estimated GFR (Cockcroft-Gault) 79.2 Glucose Level 94 mg/dL (70-99) Calcium Level 8.5 mg/dL (8.5-10.1) Laboratory Tests Test 02/16/17 04:00 White Blood Count 8.8 x10^3/uL (4.0-11.0) Red Blood Count 4.84 x10^6/uL (3.50-5.40) Hemoglobin 13.3 g/dL (12.0-15.5) Hematocrit 39.3 % (36.0-47.0) Mean Corpuscular Volume 81 fL (79-100) Mean Corpuscular Hemoglobin 27 pg (25-35) Mean Corpuscular Hemoglobin Concent 34 g/dL (31-37) Red Cell Distribution Width 16.8 % (11.5-14.5) Platelet Count 275 x10^3/uL (140-400) Neutrophils (%) (Auto) 57 % (31-73) Lymphocytes (%) (Auto) 26 % (24-48) Monocytes (%) (Auto) 12 % (0-9) Eosinophils (%) (Auto) 4 % (0-3) Basophils (%) (Auto) 1 % (0-3) Neutrophils # (Auto) 5.0 x10^3uL (1.8-7.7) Lymphocytes # (Auto) 2.3 x10^3/uL (1.0-4.8) Monocytes # (Auto) 1.1 x10^3/uL (0.0-1.1) Eosinophils # (Auto) 0.4 x10^3/uL (0.0-0.7) Basophils # (Auto) 0.1 x10^3/uL (0.0-0.2) Sodium Level 133 mmol/L (136-145) Potassium Level 3.7 mmol/L (3.5-5.1) Chloride Level 100 mmol/L (98-107) Carbon Dioxide Level 25 mmol/L (21-32) Anion Gap 8 (6-14) Blood Urea Nitrogen 15 mg/dL (7-20) Creatinine 0.7 mg/dL (0.6-1.0) Estimated GFR (Cockcroft-Gault) 79.2 Glucose Level 94 mg/dL (70-99) Calcium Level 8.5 mg/dL (8.5-10.1) Microbiology 02/14/17 Urine Culture - Final, Complete 02/14/17 Urine Culture Result 1 (ANGELIA) - Final, Complete 02/14/17 Antimicrobic Susceptibility - Final, Complete Medications Current Medications Diltiazem HCl (Cardizem) 10 mg 1X ONCE IVP Last administered on 02/14/17 16: 20; Start 02/14/17 at 15:30; Stop 02/14/17 at 15:32; Status DC Diltiazem HCl 125 mg/Dextrose 125 ml @ 10 mls/hr 1X ONCE IV Last administered on 02/14/17 16:20; Start 02/14/17 at 15:30; Stop 02/15/17 at 03:59 ; Status DC Ceftriaxone Sodium 50 ml @ 100 mls/hr 1X ONCE IV ; Start 02/14/17 at 17:00; Stop 02/14/17 at 17:07; Status DC Ciprofloxacin (Cipro) 500 mg 1X ONCE PO Last administered on 02/14/17 17:17; Start 02/14/17 at 17:30; Stop 02/14/17 at 17:31; Status DC Info (Do NOT chart on this placeholder) 1 each 1X ONCE MC ; Start 02/15/17 at 09:00; Stop 02/15/17 at 09:01; Status UNV Influenza Virus Vaccine Quadrival (Fluarix Quad [id number] Syringe) 0.5 ml ONCE ONCE VAX IM Last administered on 02/15/17 08:10; Start 02/14/17 at 21:00; Stop 02/14/17 at 21:01; Status DC Diltiazem HCl 125 mg/Dextrose 125 ml @ 0 mls/hr CONT PRN IV SEE I/O RECORD; Start 02/15/17 at 08:00 Acetaminophen (Tylenol) 650 mg PRN Q6HRS PRN PO fever pain; Start 02/15/17 at 00:45 Aspirin (Children'S Aspirin) 81 mg DAILY PO Last administered on 02/16/17 08: 18; Start 02/15/17 at 09:00 Cetirizine HCl (ZyrTEC) 10 mg DAILY PO Last administered on 02/16/17 08:18; Start 02/15/17 at 09:00 Docusate Sodium (Colace) 100 mg BID PO Last administered on 02/16/17 08:18; Start 02/15/17 at 09:00 Ciprofloxacin (Cipro) 500 mg [id number] PO Last administered on 02/16/17 06:31; Start 02/15/17 at 06:00 Acetaminophen (Tylenol) 650 mg PRN Q6HRS PRN PO FEVER; Start 02/15/17 at 10:00 ; Stop 02/15/17 at 13:24; Status DC Ondansetron HCl (Zofran) 4 mg PRN Q6HRS PRN IV NAUSEA/VOMITING; Start 02/15/17 at 10:00 Morphine Sulfate 2 mg PRN Q2HR PRN IV PAIN; Start 02/15/17 at 10:00 Tramadol HCl (Ultram) 50 mg PRN Q6HRS PRN PO PAIN; Start 02/15/17 at 10:00 Hydralazine HCl (Apresoline) 10 mg PRN Q4HRS PRN IVP ELEVATED BP, SEE COMMENTS ; Start 02/15/17 at 10:00 Docusate Sodium (Colace) 100 mg PRN DAILY PRN PO CONSTIPATION; Start 02/15/17 at 10:00 Diltiazem HCl (Cardizem 24hr Cd) 120 mg DAILY PO Last administered on 08:18; Start 02/15/17 at 11:00 Enoxaparin Sodium (Lovenox 40mg Syringe) 40 mg Q24H SQ Last administered on 15:52; Start 02/15/17 at 14:00 Metoprolol Succinate (Toprol Xl) 25 mg DAILY PO Last administered on 02/16/17 10:22; Start 02/16/17 at 09:00 Active Scripts Active Colace (Docusate Sodium) 100 Mg Capsule 100 Mg PO BID Reported Aspirin 81 Mg Tab.chew 1 Tab PO DAILY Flecainide Acetate 50 Mg Tablet 50 Mg PO BID Zyrtec (Cetirizine Hcl) 10 Mg Tablet 1 Tab PO DAILY Vitals/I & O Vital Sign - Last 24 Hours 02/15/17 02/15/17 02/15/17 02/15/17 15:00 19:39 19:45 23:12 Temp 97.6 97.5 98.5 97.6 97.5 98.5 Pulse 72 84 85 Resp 19 16 16 B/P (MAP) 138/66 (90) 142/75 (97) 144/76 (98) Pulse Ox 95 95 96 O2 Delivery Room Air Room Air Room Air Room Air 10/8/17 10/8/17 10/8/17 10/8/17 03:50 07:00 08:00 08:18 Temp 97.7 98.5 97.7 98.5 Pulse 83 69 69 Resp 18 19 B/P (MAP) 151/89 (109) 140/77 (98) 140/77 Pulse Ox 96 91 O2 Delivery Room Air Room Air Room Air 02/16/17 02/16/17 10:22 11:00 Temp 97.8 97.8 Pulse 69 81 Resp 19 B/P (MAP) 140/77 110/73 (85) Pulse Ox 95 O2 Delivery Room Air HIRO BACA MD Feb 16, 2017 13:22
[2017-02-16] MEDS: ENOXAPARIN 40 MG/0.4 ML SYRINGE. SQ SCH (14:29)
[2017-02-16 15:00] VITALS: BP_SYST 114; BP_SYST 141; BP_SYST 145; BP_DIAS 75; BP_DIAS 77; BP_DIAS 80
[2017-02-16 19:15] VITALS: BP 138/75
[2017-02-16 23:20] VITALS: BP 142/97
[2017-02-17 03:20] VITALS: BP 141/67
[2017-02-17] MEDS: CIPROFLOXACIN HCL 250 MG TABLET. PO SCH ×2 (06:29→18:24)
[2017-02-17 07:00] VITALS: BP 143/81
[2017-02-17] MEDS: DOCUSATE SODIUM 100 MG CAPSULE. PO SCH ×2 (09:47→20:03)
[2017-02-17] MEDS: CETIRIZINE HCL 10 MG TABLET. PO SCH (09:48)
[2017-02-17] MEDS: ASPIRIN CHEWABLE 81 MG TABLET. PO SCH (09:48)
[2017-02-17] MEDS: METOPROLOL SUCC 24HR ER 25 MG TAB.ER.24H. PO SCH (09:48)
[2017-02-17 10:59] VITALS: BP 119/60
[2017-02-17] MEDS: ENOXAPARIN 40 MG/0.4 ML SYRINGE. SQ SCH (13:57)
[2017-02-17 14:50] VITALS: BP 157/71
--- NOTE | 2017-02-17 15:01 | PDOC ---
PROGRESS NOTES Chief Complaint Chief Complaint rapid afib htn gerd lightheaded UTI, recurrent leukocytosis, reactive constipation plan:fu with card add cardizem 120mg daily ,cardizem drip stopped toprolol 25mg added since still tach at 90-120s, HR at 60s now on ASA, not on AC as per family requirement, but only on ASA 81, need to double check with card, may need higher dose cont cipro for now,.ucx + Citrobacter freundii dvt ppx check orthostatic bp PTOT recommend snf, sw consulted on stool softner History of Present Illness History of Present Illness ROS: no fever, chills, sob or chest pain afib HR better at 60s pt feels scared to go home today, lives alone, lightheaded when ambulate + mild urination urgency had bradycardia history with metoprolol before Vitals Vitals Vital Signs Date Time Temp Pulse Resp B/P (MAP) Pulse Ox O2 Delivery O2 Flow Rate FiO2 02/17/17 14:50 98.3 69 20 157/71 (99) 96 Room Air 98.3 Physical Exam General: Alert, Oriented X3, Cooperative Heart: Regular rate, Normal S1, Normal S2 Lungs: Clear Abdomen: Normal bowel sounds, Soft Extremities: No clubbing, No cyanosis Skin: No rashes Assessment and Plan Assessmemt and Plan Problems Medical Problems: (1) Atrial fibrillation with RVR Status: Acute Problems: Comment Review of Relevant I have reviewed the following items karlos (where applicable) has been applied. Labs Laboratory Tests Test 02/16/17 04:00 White Blood Count 8.8 x10^3/uL (4.0-11.0) Red Blood Count 4.84 x10^6/uL (3.50-5.40) Hemoglobin 13.3 g/dL (12.0-15.5) Hematocrit 39.3 % (36.0-47.0) Mean Corpuscular Volume 81 fL (79-100) Mean Corpuscular Hemoglobin 27 pg (25-35) Mean Corpuscular Hemoglobin Concent 34 g/dL (31-37) Red Cell Distribution Width 16.8 % (11.5-14.5) Platelet Count 275 x10^3/uL (140-400) Neutrophils (%) (Auto) 57 % (31-73) Lymphocytes (%) (Auto) 26 % (24-48) Monocytes (%) (Auto) 12 % (0-9) Eosinophils (%) (Auto) 4 % (0-3) Basophils (%) (Auto) 1 % (0-3) Neutrophils # (Auto) 5.0 x10^3uL (1.8-7.7) Lymphocytes # (Auto) 2.3 x10^3/uL (1.0-4.8) Monocytes # (Auto) 1.1 x10^3/uL (0.0-1.1) Eosinophils # (Auto) 0.4 x10^3/uL (0.0-0.7) Basophils # (Auto) 0.1 x10^3/uL (0.0-0.2) Sodium Level 133 mmol/L (136-145) Potassium Level 3.7 mmol/L (3.5-5.1) Chloride Level 100 mmol/L (98-107) Carbon Dioxide Level 25 mmol/L (21-32) Anion Gap 8 (6-14) Blood Urea Nitrogen 15 mg/dL (7-20) Creatinine 0.7 mg/dL (0.6-1.0) Estimated GFR (Cockcroft-Gault) 79.2 Glucose Level 94 mg/dL (70-99) Calcium Level 8.5 mg/dL (8.5-10.1) Microbiology 02/14/17 Urine Culture - Final, Complete 02/14/17 Urine Culture Result 1 (ANGELIA) - Final, Complete 02/14/17 Antimicrobic Susceptibility - Final, Complete Medications Current Medications Diltiazem HCl (Cardizem) 10 mg 1X ONCE IVP Last administered on 02/14/17 16: 20; Start 02/14/17 at 15:30; Stop 02/14/17 at 15:32; Status DC Diltiazem HCl 125 mg/Dextrose 125 ml @ 10 mls/hr 1X ONCE IV Last administered on 02/14/17 16:20; Start 02/14/17 at 15:30; Stop 02/15/17 at 03:59 ; Status DC Ceftriaxone Sodium 50 ml @ 100 mls/hr 1X ONCE IV ; Start 02/14/17 at 17:00; Stop 02/14/17 at 17:07; Status DC Ciprofloxacin (Cipro) 500 mg 1X ONCE PO Last administered on 02/14/17 17:17; Start 02/14/17 at 17:30; Stop 02/14/17 at 17:31; Status DC Info (Do NOT chart on this placeholder) 1 each 1X ONCE MC ; Start 02/15/17 at 09:00; Stop 02/15/17 at 09:01; Status UNV Influenza Virus Vaccine Quadrival (Fluarix Quad [id number] Syringe) 0.5 ml ONCE ONCE VAX IM Last administered on 02/15/17 08:10; Start 02/14/17 at 21:00; Stop 02/14/17 at 21:01; Status DC Diltiazem HCl 125 mg/Dextrose 125 ml @ 0 mls/hr CONT PRN IV SEE I/O RECORD; Start 02/15/17 at 08:00 Acetaminophen (Tylenol) 650 mg PRN Q6HRS PRN PO fever pain; Start 02/15/17 at 00:45 Aspirin (Children'S Aspirin) 81 mg DAILY PO Last administered on 02/17/17 09: 48; Start 02/15/17 at 09:00 Cetirizine HCl (ZyrTEC) 10 mg DAILY PO Last administered on 02/17/17 09:48; Start 02/15/17 at 09:00 Docusate Sodium (Colace) 100 mg BID PO Last administered on 02/17/17 09:47; Start 02/15/17 at 09:00 Ciprofloxacin (Cipro) 500 mg [id number] PO Last administered on 02/17/17 06:29; Start 02/15/17 at 06:00 Acetaminophen (Tylenol) 650 mg PRN Q6HRS PRN PO FEVER; Start 02/15/17 at 10:00 ; Stop 02/15/17 at 13:24; Status DC Ondansetron HCl (Zofran) 4 mg PRN Q6HRS PRN IV NAUSEA/VOMITING; Start 02/15/17 at 10:00 Morphine Sulfate 2 mg PRN Q2HR PRN IV PAIN; Start 02/15/17 at 10:00 Tramadol HCl (Ultram) 50 mg PRN Q6HRS PRN PO PAIN; Start 02/15/17 at 10:00 Hydralazine HCl (Apresoline) 10 mg PRN Q4HRS PRN IVP ELEVATED BP, SEE COMMENTS ; Start 02/15/17 at 10:00 Docusate Sodium (Colace) 100 mg PRN DAILY PRN PO CONSTIPATION; Start 02/15/17 at 10:00 Diltiazem HCl (Cardizem 24hr Cd) 120 mg DAILY PO Last administered on 09:47; Start 02/15/17 at 11:00 Enoxaparin Sodium (Lovenox 40mg Syringe) 40 mg Q24H SQ Last administered on 13:57; Start 02/15/17 at 14:00 Metoprolol Succinate (Toprol Xl) 25 mg DAILY PO Last administered on 02/17/17 09:48; Start 02/16/17 at 09:00 Active Scripts Active Colace (Docusate Sodium) 100 Mg Capsule 100 Mg PO BID Reported Aspirin 81 Mg Tab.chew 1 Tab PO DAILY Flecainide Acetate 50 Mg Tablet 50 Mg PO BID Zyrtec (Cetirizine Hcl) 10 Mg Tablet 1 Tab PO DAILY Vitals/I & O Vital Sign - Last 24 Hours 02/16/17 02/16/17 02/16/17 02/17/17 19:15 20:00 23:20 03:20 Temp 97.7 98.6 98.3 97.7 98.6 98.3 Pulse 78 82 76 Resp 18 20 18 B/P (MAP) 138/75 (96) 142/97 (112) 141/67 (91) Pulse Ox 97 98 98 O2 Delivery Room Air Room Air Room Air Room Air 02/17/17 02/17/17 02/17/17 02/17/17 07:00 08:00 09:47 09:48 Temp 97.8 97.8 Pulse 59 59 59 Resp 18 B/P (MAP) 143/81 (101) 143/81 143/81 Pulse Ox 97 O2 Delivery Room Air Room Air 02/17/17 02/17/17 10:59 14:50 Temp 98.1 98.3 98.1 98.3 Pulse 61 69 Resp 19 20 B/P (MAP) 119/60 (79) 157/71 (99) Pulse Ox 96 96 O2 Delivery Room Air Room Air Intake and Output 02/17/17 02/17/17 02/18/17 15:00 23:00 07:00 Intake Total 360 ml Balance 360 ml HIRO BACA MD Feb 17, 2017 15:01
[2017-02-17 19:40] VITALS: BP 146/66
[2017-02-17 23:08] VITALS: BP 139/74
[2017-02-18 03:40] VITALS: BP 140/71
[2017-02-18] MEDS: CIPROFLOXACIN HCL 250 MG TABLET. PO SCH (06:44)
[2017-02-18 07:55] VITALS: BP 156/68
[2017-02-18] MEDS: CETIRIZINE HCL 10 MG TABLET. PO SCH (08:47)
[2017-02-18] MEDS: DOCUSATE SODIUM 100 MG CAPSULE. PO SCH (08:47)
[2017-02-18] MEDS: ASPIRIN CHEWABLE 81 MG TABLET. PO SCH (08:47)
[2017-02-18] MEDS: METOPROLOL SUCC 24HR ER 25 MG TAB.ER.24H. PO SCH (08:48)
[2017-02-18 10:40] VITALS: BP 140/63
[2017-02-18 10:45] VITALS: BP 107/66
[2017-02-18 10:50] VITALS: BP 96/63
[2017-02-18] MEDS ORDERED: METO-239 PO (11:05)
[2017-02-18] MEDS ORDERED: DILT120C80 PO (11:05)
--- NOTE | 2017-02-18 14:01 | PDOC3 ---
Discharge Summary [facility] Date of Admission: Feb 14, 2017 Discharge Date: Feb 18, 2017 Admitting Diagnosis rapid afib htn gerd lightheaded UTI, recurrent leukocytosis, reactive constipation orthostatic hypotension Problems: Final Diagnosis CONSULTS card Brief Hospital Course Ms. Hogan is a 86 old F, with chronic afib on flecaimide, comes for dizzyness was found rapid afib, controlled ok with cardizem and metoprolol, had h/o bradycardia with metoprol. only on ASA 81MG daily, talked to pt, who said has been fu with own card in [place], so cont for now. seem family dosenot want AC, but i recommend higher dose of ASA. pt feels very dizzy when ambulate, + orthostatic hypotension. some UTI urgency, ucx +, on cipro x3ds. dc to rehab dc tme 35min General: Alert, Oriented X3, Cooperative Heart: irregular, Normal S1, Normal S2 Lungs: Clear Abdomen: Normal bowel sounds, Soft Extremities: No clubbing, No cyanosis Skin: No rashes Patient History: ARDS G8 DAUGHTER FH: CVA (cerebrovascular accident) 32 MOTHER FH: Parkinson's disease G8 BROTHER FH: breast cancer G8 DAUGHTER FH: hypertension G8 DAUGHTER G8 DAUGHTER FH: lung cancer G8 BROTHER FH: pulmonary embolism 33 FATHER FH: skin cancer G8 DAUGHTER FH: uterine cancer 32 MOTHER Family history: Cardiovascular disease (situation) 32 MOTHER Family history: Diabetes mellitus (situation) 32 MOTHER Family history: Epilepsy (situation) G8 DAUGHTER Problems: Disposition SNF CONDITION AT DISCHARGE: Improved Diet cardiac Scheduled Aspirin (Aspirin), 1 TAB PO DAILY, (Reported) Cetirizine Hcl (Zyrtec), 1 TAB PO DAILY, (Reported) Diltiazem Hcl (Diltiazem 24HR Cd), 120 MG PO DAILY Docusate Sodium (Colace), 100 MG PO BID Metoprolol Succinate (Metoprolol Succinate ( Xl )), 25 MG PO DAILY Discontinued Medications Flecainide Acetate (Flecainide Acetate), 50 MG PO BID, (Reported) Follow Up pcp and card in 2 weeks HIRO BACA MD Feb 18, 2017 14:01
[2017-02-18] MEDS: ENOXAPARIN 40 MG/0.4 ML SYRINGE. SQ SCH (14:09)
[2017-02-18 14:51] VITALS: BP 150/74
== END 2017-02-18 16:00 | DRG 690 ==
LOC: ER 14:35 → 2 NORTH 16:30
PROVIDERS: ADMIT Internal Medicine Hematology & Oncology; ATTEND Internal Medicine Hematology & Oncology
DX: N39.0 Urinary tract infection, site not specified (principal); I48.0 Paroxysmal atrial fibrillation; I49.5 Sick sinus syndrome; R65.10 Systemic inflammatory response syndrome (SIRS) of non-infectious origin without acute organ dysfunction; I48.2 Chronic atrial fibrillation; I11.9 Hypertensive heart disease without heart failure; I95.1 Orthostatic hypotension; K21.9 Gastro-esophageal reflux disease without esophagitis; K59.00 Constipation, unspecified; Z80.3 Family history of malignant neoplasm of breast; Z82.0 Family history of epilepsy and other diseases of the nervous system; Z82.49 Family history of ischemic heart disease and other diseases of the circulatory system; Z83.3 Family history of diabetes mellitus; Z88.0 Allergy status to penicillin; Z90.49 Acquired absence of other specified parts of digestive tract; Z90.710 Acquired absence of both cervix and uterus; Z90.89 Acquired absence of other organs; Z88.8 Allergy status to other drugs, medicaments and biological substances
CPT/HCPCS: 36415; 70450; 71010; 72125; 80048; 80076; 81001; 82553; 83690; 83735; 83880; 84484; 85025; 85610; 87086; 87186; 90686; 93005; 96365; 96366; 96375; J1650; J3490; 97535; 99291-25

== ENCOUNTER 2017-03-24 09:31 | Observation (INO) | payer OTHER ==
[~2017-03-24] VITALS: Ht 172.7 cm; Wt 58.6 kg
[2017-03-24] VITALS (13 sets, daily range): BP systolic 134–178; BP diastolic 56–87
[~2017-03-24 09:31] MED LIST changes: +ASPI-630 PO; +DILT120C80 PO; +METO-239 PO; +VANCOMYCIN 1 GM in IV DEXTROSE 5% 250 ML IV ONE
[2017-03-24] MEDS ORDERED: BACITRACIN 50,000 UNIT in IV NORMAL SALINE 250ML 250 ML IRR ONE (09:45)
[2017-03-24 10:01] LABS: HEMOGLOBIN 14.2 g/dL (12.0-15.5); RED BLOOD COUNT 5.08 x10^6/uL (3.50-5.40); RED CELL DISTRIBUTION WIDTH 17.5 % (11.5-14.5); WHITE BLOOD COUNT 8.3 x10^3/uL (4.0-11.0)
--- NOTE | 2017-03-24 10:05 | EKG ---
[facility] [address] [place] [address] Test Date: 2017-03-24 Test Time: 10:00:41 Pat Name: DIGNA STARR Department: Room: Gender: F Consulting Manager: NEEL : [id number] Requested By: CLAU ESCOBAR Order Number: [id number] Reading MD: Clau Escobar MD Measurements Intervals Orange Rate: 42 P: 41 IN: 158 QRS: -62 QRSD: 88 T: -17 QT: 482 QTc: 402 Interpretive Statements SINUS BRADYCARDIA Electronically Signed On 03-24-2017 10:33:14 CLINIC BUSINESS MANAGER by Clau Escobar MD
[2017-03-24 10:12] LABS: INR 1.1 (0.8-1.1); PROTHROMBIN TIME PATIENT 13.7 SEC (11.7-14.0)
[2017-03-24] MEDS ORDERED: CHOL100013 PO (10:16)
[2017-03-24] MEDS ORDERED: SENN-79 PO (10:16)
[2017-03-24] MEDS ORDERED: CHOL10003 PO (10:16)
[2017-03-24] MEDS ORDERED: ASCO10002 PO (10:16)
[2017-03-24] MEDS ORDERED: MIDO10TA PO (10:16)
--- NOTE | 2017-03-24 10:30 | PDOC ---
MODERATE SEDATION ASSESSMENT RISKS/ALTERNATIVES Risks/Alternatives Risks and alternatives of this type of sedation and procedure discussed with: RISK/ALTERNATIVES: Patient H & P ON CHART H & P H & P on chart and reviewed for co-morbid conditions and appropriate labs. H&P ON CHART: Yes STATUS PREG STATUS ASSESSED: N/A MEDS/ALLERGIES REVIEWED Meds/Allergies Reviewed Medications and Allergies including time and route of recently administered narcotics and sedatives. MEDS/ALLERGIES REVIEWED: Yes ASA RATING ASA RATING: III AIRWAY ASSESSMENT Airway Assessment Airway patency, oral function limitations, presence of caps, crowns, dentures, partials, and ability to extend neck assessed. AIRWAY ASSESSMENT: Yes MALLAMPATI SCORE MALLAMPATI SCORE: II PRE-SEDATION ASSESSMENT PRE-SEDATION ASSESSMENT: Yes CLAU ESCOBAR MD Mar 24, 2017 10:30
[2017-03-24] MEDS ORDERED: LIDOCAINE 2%/EPI 1:100,000 20 ML VIAL. ONE (10:46)
[2017-03-24] MEDS ORDERED: fentaNYL PF VIAL 250 MCG/5 ML VIAL ONE (11:02)
[2017-03-24] MEDS ORDERED: MIDAZOLAM HCL/PF 5 MG/5 ML VIAL. ONE (11:02)
[2017-03-24] MEDS ORDERED: MIDAZOLAM HCL/PF 5 MG/5 ML VIAL. IV ONE (12:00)
[2017-03-24] MEDS ORDERED: LIDOCAINE 2%/EPI 1:100,000 20 ML VIAL. IJ ONE (12:00)
[2017-03-24] MEDS ORDERED: fentaNYL PF VIAL 250 MCG/5 ML VIAL IV ONE (12:00)
--- NOTE | 2017-03-24 12:59 | CARD ---
APPROVED REPORT HISTORY The Patient is a 86 year-old female with a history of SSS and tachybrady syndrome with symptoms PROCEDURES Insertion Dual Chamber Pacemaker Moderate sedation: 82 minutes Insertion of a dual chamber biotronik pacemaker After appropriate informed consent, the patient was brought to the lab clerk and prepped and draped in the usual sterile fashion. 30 mL of 2% lidocaine was infiltrated into the skin and subcutaneous tiss ues for local anesthesia in the left infraclavicular area. An incision was made over the left infrac lavicular fossa and using blunt dissection and cautery a pocket was created. Venous access was obtai talia in the left subclavian vein and a 6 Fr sheath was inserted. Due to tortuousity in the subclavian /IVC junction, the lead would not advanced easily. Therefore, the 6 Fr sheath was upsized to a 9Fr lo ng peel away sheath. Subsequently, a Biotronik bipolar active fixation right ventricular lead model Solia S 60, SN [id number] was advanced under fluoroscopic guidance and the tip was positioned in the right ventricular apical septum. Following this, a Biotronik bipolar active fixation right atrial lead model Solia S 53, SN [id number] was placed in the right atrial lateral wall under fluoroscopy guidance. The leads were secu red into place and were attached to a Biotronik dual-chamber permanent pacemaker generator model Elun a 8 DR-T Pro MRI, SN [id number]. This was placed in the pocket that was subsequently closed in 3 layer s. Hemostasis was secured. At the end of procedure, the right ventricular lead showed sensing amplitude of 8.9 mV, impedance of 612 ohms and a threshold of 0.6V at 0.4 ms. The right atrial lead showed a sensing amplitude of 1.5 millivolts, impedance of 527 ohms and a threshold of 0.4V at 0.4 ms. Patient tolerated the procedure well. There were no immediate complications. CONCLUSION Successful insertion of a Biotronik Dual Chamber pacemaker for SSS, Tachy-Darin Syndrome and symptoma tic dizziness and lightheadedness.
[2017-03-24] MEDS ORDERED: NO ANTICOAGULANT THERAPY. MC PRN (13:00)
--- NOTE | 2017-03-24 14:00 | RAD ---
Indication: Pacemaker placement. Technique: Upright portable chest radiograph was obtained and compared to a study from February 14, 2017. Findings: The lungs are clear. There is no pneumothorax or pleural effusion. The heart is enlarged. Dual lead pacemaker has been placed via left subclavian approach, leads appear in position. There is no heart failure. Leads overlie the patient. Impression: No evidence of pneumothorax post pacemaker placement.
[2017-03-24] MEDS ORDERED: ACETAMINOPHEN 325 MG TABLET. PO PRN (21:00)
[2017-03-25] MEDS ORDERED: VANCOMYCIN 1 GM in IV DEXTROSE 5% 250 ML IV ONE ×2
[2017-03-25] MEDS ORDERED: VANCOMYCIN 500 MG in IV DEXTROSE 5% 100 ML IV ONE ×2
[2017-03-25 00:05] VITALS: BP 167/80
[2017-03-25 03:59] VITALS: BP_SYST 150; BP_SYST 171; BP_DIAS 82; BP_DIAS 83
[2017-03-25 07:00] VITALS: BP 177/88
[2017-03-25] MEDS ORDERED: ASPIRIN CHEWABLE 81 MG TABLET. PO SCH (09:00)
[2017-03-25] MEDS ORDERED: METOPROLOL SUCC 24HR ER 25 MG TAB.ER.24H. PO SCH (09:00)
--- NOTE | 2017-03-25 09:58 | RAD ---
2 views of the Chest 03/25/2017 2:59 PM Indication: 1 day post pacemaker implantation Comparison: Chest radiograph, yesterday Findings: Redemonstration of dual-lead pacemaking device from a left subclavian approach. The appearance is grossly unchanged. No pneumothorax is identified. The lungs are mildly hyperinflated bilaterally, unchanged. The heart is enlarged but stable in appearance. No new consolidation or infiltrate is seen. Bony thorax is grossly intact. Impression: Stable chest without evidence of acute change from prior exam.
--- NOTE | 2017-03-25 10:22 | EKG ---
[facility] [address] [place] [id number] Test Date: 2017-03-25 Test Time: 10:19:48 Pat Name: DIGNA STARR Department: Room: 202 1 Gender: F Street [employer]: LIBBY : 1930 Requested By: CLAU ESCOBAR Order Number: [id number] Reading MD: Clau Escobar MD Measurements Intervals [place] Rate: 91 P: 40 [place]: 202 QRS: -76 QRSD: 114 T: 80 QT: 400 QTc: 494 Interpretive Statements SINUS RHYTHM A-V PACED Electronically Signed On 03-25-2017 14:05:47 [employer]OR MEDIATOR by Clau Escobar MD
[2017-03-25 10:45] VITALS: BP 153/71
--- NOTE | 2017-03-25 13:39 | PDOC3 ---
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, Symptomatic tachy-aminta syndrome Brief Hospital Course Allergies Allergies Coded Allergies Type Severity Reaction Last Updated Verified Penicillins Allergy Intermediate RASH/SWELLING 08/08/15 Yes zolpidem Allergy Intermediate 11/04/15 No Vital Signs Vital Signs Date Time Temp Pulse Resp B/P (MAP) Pulse Ox O2 Delivery O2 Flow Rate FiO2 03/25/17 10:45 97.7 81 16 153/71 (98) 97 Room Air 97.7 03/24/17 13:51 2.0 Lab Results Laboratory Tests Test 03/24/17 09:55 White Blood Count 8.3 x10^3/uL (4.0-11.0) Red Blood Count 5.08 x10^6/uL (3.50-5.40) Hemoglobin 14.2 g/dL (12.0-15.5) Hematocrit 43.0 % (36.0-47.0) Mean Corpuscular Volume 85 fL (79-100) Mean Corpuscular Hemoglobin 28 pg (25-35) Mean Corpuscular Hemoglobin Concent 33 g/dL (31-37) Red Cell Distribution Width 17.5 % (11.5-14.5) Platelet Count 320 x10^3/uL (140-400) Prothrombin Time 13.7 SEC (11.7-14.0) Prothromb Time International Ratio 1.1 (0.8-1.1) Brief Hospital Course Ms. Hogan is an 86 yo female admitted for elective pacemaker placement. She is notable for paroxysmal atrial flutter with symptoms of dizziness and lightheadedness. She was also noted with symptomatic bradycardia previously. Per outpt event monitor she has been noted with syndrome suggestive of tachy- aminta syndrome. This was discussed significantly from her recent office visit and confirmed and agreed on pacemaker placement. This was performed successfully with insertion of Biotronik dual chamber pacemaker. She tolerated procedure well with no complications. Left chest incision is intact with steristrips with minimal serosanguineous drain. Neurovascular status is intact to LUE. Repeat interrogation revealed normal functioning device. Repeat echocardiogram has been done as well for additional confirmation of lead placement adequacy but was inconclusive. CT chest was done and confirmed good placement of RV lead. Pt did well overnight, with incisional pain controlled. Denies any CP, SOA and no discomfort. BP slightly labile but improved upon initiation of BB/CCB. Continue with ASA for stroke prevention and restart low dose metoprolol/cardizem. Follow up in office in 2 weeks for wound check Discharge Information Condition at Discharge: Stable Follow Up: Weeks Disposition/Orders: D/C to Home Scheduled Aspirin (Aspirin), 1 TAB PO DAILY, (Reported) Cetirizine Hcl (Zyrtec), 1 TAB PO DAILY, (Reported) Cholecalciferol (Vitamin D3) (Vitamin D3), 1 TAB PO DAILY, (Reported) Diltiazem Hcl (Diltiazem 24HR Cd), 120 MG PO DAILY Metoprolol Succinate (Metoprolol Succinate ( Xl )), 25 MG PO DAILY Miscellaneous Medications Ascorbic Acid (Vitamin C), 1,000 MG PO, (Reported) Sennosides (Senna), 8.6 MG PO, (Reported) Discontinued Medications Cholecalciferol (Vitamin D3) (Vitamin D), 1 CAP PO DAILY, (Reported) Midodrine Hcl (Midodrine Hcl), 10 MG PO, (Reported) Patient Instructions Patient Instructions Must know & what to expect after device implant: 1. Your surgical dressing should be removed prior to discharge from the hospital, but allow the steri- strips to fall off naturally. 2. Activity restrictions: DO NOT raise arm above shoulder level, lift anything heavier than a gallon of milk, and no push or pull motions such as vacuuming/lawn mowing, no swinging motions (golf), etc for 4 weeks. 3. It is OK to use a cell phone or other electronic devices just be sure you do not store it in a breast pocket on the side where the device was placed. 4. Device will be interrogated prior to your discharge from the hospital and then every 3 months for defibrillators and every 6 months for pacemakers. You may be asked to have your device checked remotely from home as well, but this will depend on your particular physicians preference. 5. You may remove the arm immobilizer the day after device placement. Wear the arm immobilizer/splint at night (during sleep times) for 2 week to prevent unintended arm movement that can cause lead dislodgement. 6. Do not drive for one week as the task of driving may lead to unintended arm motion that may cause lead dislodgement. The seatbelt will also rub against the incision site & cause irritation. 7. It is our recommendation that you utilize Tylenol at home for pain control. You need to call our office if you are having uncontrollable pain at the incision site. 8. Keep your incision clean and dry. It is OK to shower. DO NOT submerge in bath, pool, or hot tub, until cleared by your doctor, as this could lead to increase risk of infection.. It is OK to use regular soap just do not scrub the incision site. Water spray from shower should not directly hit the incision. Be sure to blot dry not rub. 9. Inspect your incision daily. If you notice any increased redness, swelling , or drainage, or if you start running a fever, call the office immediately. The number is [phone]. 10. For women, if you need to protect against irritation from the bra straps, you can place a piece of gauze over the incision site for cushion. Please be sure to tape it loosely to allow air to the site & remove the gauze when you remove the bra. 11. Be sure to carry your device identification information card in your wallet/purse at all times. 12. It is OK to go through security at the airport with your device, but be sure to let the TSA know prior to proceeding as the security settings change depending on varying factors. Please do whatever is requested by security at that time. 13. Some of the newer devices may be MRI compatible but, currently, the use of these devices is not widespread, so you likely will not be able to have an MRI. Please clarify this with your physician. If at any time, you feel lightheaded or dizzy/faint, stop what you are doing & lie down immediately. If you are driving, get to the side of the road quickly, turn your car off & call 911 on your cell phone. DO NOT continue to drive as this may cause an accident that seriously injures yourself &/or others. Call the office at [phone] for any questions or concerns. CLAU ESCOBAR MD 03/26/17 5982: Discharge Summary Brief Hospital Course Brief Hospital Course Patient seen and examined. Agree with above nurse practitioner note. Please see separate progress note from day of discharge for full details. Discharge Information Scheduled Aspirin (Aspirin), 1 TAB PO DAILY, (Reported) Cetirizine Hcl (Zyrtec), 1 TAB PO DAILY, (Reported) Cholecalciferol (Vitamin D3) (Vitamin D3), 1 TAB PO DAILY, (Reported) Diltiazem Hcl (Diltiazem 24HR Cd), 120 MG PO DAILY Metoprolol Succinate (Metoprolol Succinate ( Xl )), 25 MG PO DAILY Miscellaneous Medications Ascorbic Acid (Vitamin C), 1,000 MG PO, (Reported) Sennosides (Senna), 8.6 MG PO, (Reported) Discontinued Medications Cholecalciferol (Vitamin D3) (Vitamin D), 1 CAP PO DAILY, (Reported) Midodrine Hcl (Midodrine Hcl), 10 MG PO, (Reported) COLLEEN TAYLOR APRN Mar 25, 2017 13:39 CLAU ESCOBAR MD Mar 26, 2017 17:25
[2017-03-25 14:49] VITALS: BP 142/73
--- NOTE | 2017-03-25 14:53 | CARD ---
APPROVED REPORT EXAM: Two-dimensional and M-mode echocardiogram with Doppler and color Doppler. Other Information Quality : Technically Limited Technically limited study due to body habitus. INDICATION Cardiomegaly Surgery/Intervention Pacemaker: 2D DIMENSIONS RVDd1.8 (2.9-3.5cm)Left Atrium(2D)1.8 (1.6-4.0cm) IVSd0.9 (0.7-1.1cm)Aortic Root(2D)2.5 (2.0-3.7cm) LVDd3.4 (3.9-5.9cm)LVOT Diameter2.0 (1.8-2.4cm) PWd1.1 (0.7-1.1cm)LVDs3.0 (2.5-4.0cm) FS (%) 28.0 %SV7.9 ml LVEF(%)55.0 (>50%) Mitral Valve MV E Mwbbmaov96.1cm/sMV DECEL VKQY978ve MV A Bmfovora21.6cm/sMV EQD62lx E/A Ratio0.6MVA (PHT)3.06cm2 Tricuspid Valve TR P. Natpdvuc422mw/sRAP NPYYAANM6ovQp TR Peak Gr.[id number] LEFT VENTRICLE The left ventricle is normal size. There is normal left ventricular wall thickness. The left ventricu lar systolic function is normal and the ejection fraction is within normal range. The Ejection Fracti on is 55-60%. There is grossly normal LV segmental wall motion. Transmitral Doppler flow pattern is G rade I-abnormal relaxation pattern. RIGHT VENTRICLE The right ventricle is normal size. The right ventricular systolic function is normal. Pacing lead in the RV is not well visualized. Placement is difficult to visualize. ATRIA The left atrium size is normal. The right atrium size is normal. A pacing lead is noted in the RA. Th e interatrial septum is intact with no evidence for an atrial septal defect or patent foramen ovale a s noted on 2-D or Doppler imaging. AORTIC VALVE The aortic valve is not well visualized. Doppler and Color Flow revealed no significant aortic regurg itation. There is no significant aortic valvular stenosis. MITRAL VALVE The mitral valve is not well visualized. There is no evidence of mitral valve prolapse. There is no m itral valve stenosis. Doppler and Color-flow revealed trace mitral regurgitation. TRICUSPID VALVE The tricuspid valve is normal in structure and function. Doppler and Color Flow revealed trace tricus pid regurgitation. The PA pressure was estimated at 28 mmHg. There is no tricuspid valve stenosis. PULMONIC VALVE The pulmonic valve is not well visualized. GREAT VESSELS The aortic root is normal in size. The ascending aorta is normal in size. The IVC was not visualized. PERICARDIAL EFFUSION There is a small anterior pericardial effusion. Critical Notification Critical Value: No <Conclusion> The left ventricular systolic function is normal and the ejection fraction is within normal range. Th e Ejection Fraction is 55-60%. There is grossly normal LV segmental wall motion. Pacing lead in the RV is not well visualized. Placement is difficult to visualize. There is a small anterior pericardial effusion.
--- NOTE | 2017-03-25 15:56 | PDOC ---
COLLEEN TAYLOR DATA ENGINEER 03/25/17 1556: CARDIO Progress Notes Date and Time Date of Service 03/25/2017 Time of Evaluation 1500 Subjective Subjective: No Chest Pain, No shortness of breath, No Palpitations Vitals Vitals Vital Signs Date Time Temp Pulse Resp B/P (MAP) Pulse Ox O2 Delivery O2 Flow Rate FiO2 03/25/17 14:49 97.6 70 16 142/73 (96) 97 Room Air 97.6 03/24/17 13:51 2.0 Weight Weight [ ] Input and Output Intake and Output Intake and Output 03/25/17 07:00 Intake Total 510 ml Output Total 650 ml Balance -140 ml Intake Oral 410 ml IV Total 100 ml Output Urine Total 650 ml # Voids 4 # Bowel Movements 1 Physical Exam HEENT: Neck Supple W Full Motion Chest: Symmetric LUNGS: Other (faint basilar crackles) Heart: S1S2, RRR (intermittent atrial pacing) Abdomen: Soft N/T Extremities: No Calf Tenderness Neurology: alert, oriented, follow commands Other Exams left chest incision D/I with steritrips, neurovascular status to LUE intact with sling in place. Assessment Assessment 1. Symptomatic tachy-aminta syndrome 2. S/P PPM: dual chamber biotronik. Normal device function with f/u interrogation. 3. HTN: initially labile 4. PAFIB: intermittent atrial pacing otherwise SR. Recommendations 1. F/U CXR and TTE difficult to ascertain RV lead positioning and adequacy. Noncontrast CT to further verify 2. Continue with ASA, BB/CCB. 3. If RV positioning is not adequate then will plan for repositioning tomorrow. Discussed with pt. CLAU ESCOBAR MD 03/25/17 3125: CARDIO Progress Notes Plan Plan Pt. seen and examined. Left pacemaker incision is c/d/i On her post procedure CXR today, the RV lead appeared to be traversing more posteriorly - raising concern for possible coronary sinus placement Interrogation today revealed excellent thresholds. Echo could not adequately determine RV lead position. CT scan of the chest ordered and it appears that due to severe pectus deformity , the RV is distorted. Based on images and threshold testing, the RV lead appears to be in good position. Discussed this with patient and family. Ok to DC without midodrine as BP has been adequate. F/u in the office for routine wound check. COLLEEN TAYLOR APRN Mar 25, 2017 15:56 CLAU ESCOBAR MD Mar 25, 2017 22:37
--- NOTE | 2017-03-25 16:54 | RAD ---
CT of the chest without contrast, 03/25/2017: History: Pleural effusion Noncontrast scans were obtained as requested. Comparison is made to a study from 07/11/2014. There are peripheral parenchymal opacities in both upper lobes extending into the apices. These are unchanged and are compatible with scarring. A few other scattered linear parenchymal scars are evident. There is only minimal new linear atelectasis or scarring in the left base. No pulmonary mass or significant consolidation is seen. There are granulomatous calcifications in the right chest. There is no evidence of pleural fluid. There is a severe access excavatum deformity with considerable associated distortion of the heart. A left-sided transvenous pacemaker is in place. One lead extends into the right atrium. The tip of the other lead is projected over the posterior aspect of the left side of the heart. Correlation with the postcontrast CT study of 07/11/2014 shows that the cardiac distortion due to the pectus deformity has displaced the right ventricle posteriorly and inferiorly. The tip of this lead probably lies in the right ventricle. There is a trace amount pericardial fluid. There are mild scattered coronary artery calcifications. There is mild calcific plaquing of the aorta. No mediastinal adenopathy is seen. There are moderate multilevel degenerative changes in the spine. There are multiple thoracic and upper lumbar vertebral compression deformities some of which are new since 07/11/2014. IMPRESSION: 1. 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 2. Coronary artery calcifications. 3. Bilateral pleural-parenchymal scarring, particularly in the apices. 4. No acute infiltrates or pleural fluid. 5. Multiple vertebral compression fractures. PQRS Compliance Statement: One or more of the following individualized dose reduction techniques were utilized for this examination: 1. Automated exposure control 2. Adjustment of the mA and/or kV according to patient size 3. Use of iterative reconstruction technique
== END 2017-03-25 18:36 | disposition home or self-care (01) ==
LOC: CCL 09:31 → 2 NORTH 10:00
PROVIDERS: ADMIT Internal Medicine Cardiovascular Disease; ATTEND Internal Medicine Cardiovascular Disease
DX: I49.5 Sick sinus syndrome (principal); I48.92 Unspecified atrial flutter; I10 Essential (primary) hypertension
CPT/HCPCS: 33208; 36415; 71010; 71020; 71250; 85027; 85610; 93005; 93306; 96365; 96366; 96368; C1785; C1898; G0378; G0379; J2250; J3010; J3370; J3490; J7050; 99152; 99153; J7030

== ENCOUNTER 2018-06-25 19:43 | Emergency (ER) | payer OTHER ==
[~2018-06-25] VITALS: Ht 170.2 cm; Wt 63.5 kg
[~2018-06-25 19:43] MED LIST changes: -AMLO10TA2 PO; +AMLO10TA8 PO; +ASCO10002 PO; +CHOL100013 PO; +CHOL10003 PO; -DILT120C80 PO; +DILT120C85 PO; -HYDR-2762 PO; +HYDR-2765 PO; +MIDO10TA PO; +SENN-80 PO; -VANCOMYCIN 1 GM in IV DEXTROSE 5% 250 ML IV ONE
--- NOTE | 2018-06-25 20:11 | PHYS DOC ---
Past Medical History Past Medical History: A-Fib, GERD, Hypertension, Other Additional Past Medical Histor: seasonal allergies Past Surgical History: Appendectomy, Hysterectomy, Pacemaker Alcohol Use: None Drug Use: None Adult General Chief Complaint Chief Complaint: COUGH HPI HPI Patient is a 87 year old female who presents with cough. This has been present for the past 2-3 days, getting worse over time. Moderate in intensity. No change in exercise tolerance. No worsening with supine position. No chest pain or palpitations. No lower extremity swelling. Patient reports that she has had both the pneumonia as well as the influenza vaccines. No fever. No nasal congestion or sore throat. [] Review of Systems Review of Systems Constitutional: Denies fever or chills [] Eyes: Denies change in visual acuity, redness, or eye pain [] HENT: Denies nasal congestion or sore throat [] Respiratory: See history of present illness[] Cardiovascular: See history of present illness[] GI: Denies abdominal pain, nausea, vomiting, bloody stools or diarrhea [] : Denies dysuria or hematuria [] Musculoskeletal: Denies back pain or joint pain [] Integument: Denies rash or skin lesions [] Neurologic: Denies headache, focal weakness or sensory changes [] Endocrine: Denies polyuria or polydipsia [] All other systems were reviewed and found to be within normal limits, except as documented in this note. Current Medications Current Medications Current Medications Medications (Trade) Dose Ordered Sig/Alley Start Time Stop Time Status Last Admin Dose Admin Albuterol Sulfate (Ventolin Neb Soln) 2.5 mg 1X ONCE 06/25/18 21:30 06/25/18 21:31 DC 06/25/18 21:37 2.5 MG Albuterol/ Ipratropium (Duoneb) 3 ml 1X ONCE 06/25/18 20:15 06/25/18 20:16 DC 06/25/18 20:26 3 ML Benzonatate (Tessalon Perle) 100 mg 1X ONCE 06/25/18 22:30 06/25/18 22:31 DC 06/25/18 22:16 100 MG Guaifenesin (Robitussin Dm) 10 ml 1X ONCE 06/25/18 22:30 06/25/18 22:31 DC 06/25/18 22:17 10 ML Promethazine HCl (Phenergan Syrup) 6.25 mg 1X ONCE 06/25/18 22:30 06/25/18 22:31 DC 06/25/18 22:17 6.25 MG Allergies Allergies Allergies Coded Allergies Type Severity Reaction Last Updated Verified Penicillins Allergy Intermediate RASH/SWELLING 08/08/15 Yes zolpidem Allergy Intermediate 11/04/15 No Physical Exam Physical Exam Constitutional: Well developed, well nourished, no acute distress, non-toxic appearance. Persistent dry cough while obtaining the history and physical exam [ ] HENT: Normocephalic, atraumatic, bilateral external ears normal, oropharynx moist, no oral exudates, nose normal. [] Eyes: PERRLA, EOMI, conjunctiva normal, no discharge. [] Neck: Normal range of motion, no tenderness, supple, no stridor. [] Cardiovascular:Heart rate regular rhythm, no murmur [] Lungs & Thorax: Bilateral breath sounds with inspiratory and expiratory wheezes and crackles[] Abdomen: Bowel sounds normal, soft, no tenderness, no masses, no pulsatile masses. [] Skin: Warm, dry, no erythema, no rash. [] Back: No tenderness, no CVA tenderness. [] Extremities: No tenderness, no cyanosis, no clubbing, ROM intact, no edema. [] Neurologic: Alert and oriented X 3, normal motor function, normal sensory function, no focal deficits noted. [] Psychologic: Affect normal, judgement normal, mood normal. [] Current Patient Data Vital Signs Vital Signs Date Time Temp Pulse Resp B/P (MAP) Pulse Ox O2 Delivery O2 Flow Rate FiO2 06/25/18 22:09 84 148/67 (94) 94 Room Air 06/25/18 20:00 98.3 98.3 Lab Values Laboratory Tests Test 06/25/18 20:14 White Blood Count 6.5 x10^3/uL (4.0-11.0) Red Blood Count 4.91 x10^6/uL (3.50-5.40) Hemoglobin 13.2 g/dL (12.0-15.5) Hematocrit 39.7 % (36.0-47.0) Mean Corpuscular Volume 81 fL (79-100) Mean Corpuscular Hemoglobin 27 pg (25-35) Mean Corpuscular Hemoglobin Concent 33 g/dL (31-37) Red Cell Distribution Width 17.0 % (11.5-14.5) H Platelet Count 294 x10^3/uL (140-400) Neutrophils (%) (Auto) 51 % (31-73) Lymphocytes (%) (Auto) 30 % (24-48) Monocytes (%) (Auto) 12 % (0-9) H Eosinophils (%) (Auto) 6 % (0-3) H Basophils (%) (Auto) 1 % (0-3) Neutrophils # (Auto) 3.4 x10^3uL (1.8-7.7) Lymphocytes # (Auto) 2.0 x10^3/uL (1.0-4.8) Monocytes # (Auto) 0.8 x10^3/uL (0.0-1.1) Eosinophils # (Auto) 0.4 x10^3/uL (0.0-0.7) Basophils # (Auto) 0.0 x10^3/uL (0.0-0.2) Prothrombin Time 17.0 SEC (11.7-14.0) H Prothrombin Time INR 1.4 (0.8-1.1) H Sodium Level 134 mmol/L (136-145) L Potassium Level 3.9 mmol/L (3.5-5.1) Chloride Level 97 mmol/L (98-107) L Carbon Dioxide Level 27 mmol/L (21-32) Anion Gap 10 (6-14) Blood Urea Nitrogen 9 mg/dL (7-20) Creatinine 0.7 mg/dL (0.6-1.0) Estimated GFR (Cockcroft-Gault) 79.0 BUN/Creatinine Ratio 13 (6-20) Glucose Level 114 mg/dL (70-99) H Calcium Level 8.9 mg/dL (8.5-10.1) Magnesium Level 2.0 mg/dL (1.8-2.4) Total Bilirubin 0.7 mg/dL (0.2-1.0) Aspartate Amino Transferase (AST) 27 U/L (15-37) Alanine Aminotransferase (ALT) 14 U/L (14-59) Alkaline Phosphatase 75 U/L (46-116) Troponin I Quantitative < 0.017 ng/mL (0.000-0.055) RW-Yaa-R-Type Natriuretic Peptide 411 pg/mL (0-449) Total Protein 7.1 g/dL (6.4-8.2) Albumin 3.5 g/dL (3.4-5.0) Albumin/Globulin Ratio 1.0 (1.0-1.7) Laboratory Tests 06/25/18 20:14 Laboratory Tests 06/25/18 20:14 EKG EKG EKG shows a sinus rhythm, at 69 bpm, axis of -60, QTC of 456, no ST elevations , this was interpreted by me at 2030, it is different than her last EKG of 03/25 which was paced at that time[] Radiology/Procedures Radiology/Procedures Chest x-ray shows no infiltrate, no effusion, no pneumothorax[] Course & Med Decision Making Course & Med Decision Making Pertinent Labs and Imaging studies reviewed. (See chart for details) ED course and medical decision making: Patient arrived, was placed in bed, tolerated exam well. Patient's lung congestion did improve after breathing treatments however the cough persisted. She was given cough specific medicines which did slightly improve the cough. Do not see any evidence of hypoxia, no pneumonia, no evidence of this being an acute coronary syndrome nor congestive heart failure. Discussed findings and plan with patient and family who then relayed that patient was exposed to her sister with similar cough issues and received the same medications that I am planning on giving this patient[] Dragon Disclaimer Dragon Disclaimer This electronic medical record was generated, in whole or in part, using a voice recognition dictation system. Departure Departure Impression: Primary Impression: Cough Disposition: 01 HOME, SELF-CARE Condition: IMPROVED Referrals: DIGNA PETERSEN MD (PCP) Follow-up in 2 days Patient Instructions: Cough, Adult Additional Instructions: Follow-up with your primary care physician in 2 days. Drink plenty of fluids. Return to the ER if worsening difficulty breathing or any other concerns. Scripts Albuterol Sulfate (VENTOLIN HFA INHALER) 18 Gm Hfa.aer.ad 2 PUFF INH Q4HRS for FOR ASTHMA, #1 INHALER 0 Refills Prov: JABIER TOM DO 06/25/18 Benzonatate (TESSALON PERLE) 100 Mg Capsule 1 CAP PO TID, #21 CAP Prov: JABIER TOM DO 06/25/18 D-Methorphan Hb/Prometh Hcl (PROMETHAZINE-DM SYRUP) 118 Ml Syrup 5 ML PO PRN Q4HRS, #120 ML Prov: JABIER TOM DO 06/25/18 Azithromycin (AZITHROMYCIN TABLET) 250 Mg Tablet 1 PKG PO UD, #6 TAB Prov: JABIER TOM DO 06/25/18 JABIER TOM DO Jun 25, 2018 20:11
[2018-06-25] MEDS ORDERED: IPRATRPIUM/ALBUTEROL 0.5/2.5MG 3 ML NEBU. NEB ONE (20:15)
[2018-06-25 20:52] LABS: BASO % 1 % (0-3); EOS # 0.4 x10^3/uL (0.0-0.7); EOS % 6 % (0-3); HEMATOCRIT 39.7 % (36.0-47.0); HEMOGLOBIN 13.2 g/dL (12.0-15.5); LYMPH % 30 % (24-48); MEAN CORPUSCULAR HEMOGLOBIN 27 pg (25-35); MEAN CORPUSCULAR HGB CONC 33 g/dL (31-37); MEAN CORPUSCULAR VOLUME 81 fL (79-100); MONO # 0.8 x10^3/uL (0.0-1.1); MONO % 12 % (0-9); NEUT # 3.4 x10^3uL (1.8-7.7); NEUT % 51 % (31-73); PLATELET COUNT 294 x10^3/uL (140-400); RED BLOOD COUNT 4.91 x10^6/uL (3.50-5.40); WHITE BLOOD COUNT 6.5 x10^3/uL (4.0-11.0)
[2018-06-25 21:00] LABS: CALCIUM 8.9 mg/dL (8.5-10.1); CREATININE 0.7 mg/dL (0.6-1.0); POTASSIUM 3.9 mmol/L (3.5-5.1)
[2018-06-25 21:06] LABS: ALBUMIN 3.5 g/dL (3.4-5.0); TOTAL BILIRUBIN 0.7 mg/dL (0.2-1.0); TOTAL PROTEIN 7.1 g/dL (6.4-8.2)
[2018-06-25] MEDS ORDERED: ALBUTEROL SULFATE 2.5 MG/3 ML NEBU. NEB ONE (21:30)
[2018-06-25] MEDS ORDERED: BENZONATATE 100 MG CAPSULE. PO ONE (22:30)
[2018-06-25] MEDS ORDERED: guaiFENesin DM 200MG/20MG 10 ML SYRUP PO ONE (22:30)
[2018-06-25] MEDS ORDERED: PROMETHAZINE 6.25 MG/5 ML SYRUP. PO ONE (22:30)
[2018-06-25 22:39] VITALS: BP 161/71
[2018-06-25] MEDS ORDERED: D-ME118S2 PO (22:42)
[2018-06-25] MEDS ORDERED: BENZ100C PO (22:42)
[2018-06-25] MEDS ORDERED: AZIT250T6 PO (22:42)
[2018-06-25] MEDS ORDERED: VENTOLIN HFA18 GM INH (22:45)
--- NOTE | 2018-06-26 07:56 | RAD ---
Chest, 2 views, 06/25/2018: HISTORY: Productive cough Comparison is made to a study from 03/25/2017. A left-sided transvenous pacing device remains in place with 2 leads extending into the right heart. The heart is mildly enlarged. There is a pectus excavatum deformity. The pulmonary vascularity is normal. There is pleural/parenchymal scarring over the pulmonary apices, worse on the right. There is minimal linear scarring or atelectasis in the left base. No pulmonary consolidation is seen. There is no evidence of pleural fluid. Scattered degenerative changes are present in the spine. There is mild chronic appearing loss of height of several midthoracic vertebral bodies. IMPRESSION: 1. Pectus excavatum deformity. 2. Mild cardiomegaly. 3. Minimal left basilar atelectasis and/or scarring. Electronically signed by: Puneet Steinberg MD (06/26/2018 7:53 AM) [facility]
--- NOTE | 2018-06-29 15:28 | EKG ---
[facility] [address] [place] [address] Test Date: 2018-06-25 Test Time: 20:26:05 Pat Name: DIGNA STARR Department: Room: Gender: F Advanced Practice Psychiatric Nurse: : [id number] Requested By: JABIER TOM Order Number: [id number] Reading MD: Measurements Intervals [place] Rate: P: LA: QRS: QRSD: T: QT: QTc: Interpretive Statements
== END 2018-06-25 23:12 | disposition home or self-care (01) ==
LOC: ER 19:43
DX: R05 Cough (principal); I10 Essential (primary) hypertension; I48.91 Unspecified atrial fibrillation; K21.9 Gastro-esophageal reflux disease without esophagitis; Z95.0 Presence of cardiac pacemaker; Z88.0 Allergy status to penicillin; Z88.8 Allergy status to other drugs, medicaments and biological substances
CPT/HCPCS: 36415; 71046; 80053; 83735; 83880; 84484; 85025; 85610; 93005; 94640; 99284; J7613; J7620